=== PATIENT | female | born 1950 | race Caucasian/White ===

== ENCOUNTER 2024-10-14 10:56 | Outpatient (OUT) | payer MEDICARE, OTHER, SELFPAY ==
--- NOTE | 2024-10-14 11:01 | ECG_ITS ---
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
[2024-10-14 12:13] LABS: Hematocrit 28.1 % (36.0-48.0); Hemoglobin 8.7 g/dL (12.0-16.0); Immature Granulocytes Abs Auto 0.03 10^3/uL (0.00-0.03); Immature Granulocytes Pct Auto 0.3 % (0.0-0.5); Lymphocytes Absolute Auto 2.6 10^3/uL (1.2-3.8); Mean Corpuscular HGB Conc 31.0 g/dL (29.9-35.2); Mean Corpuscular Hemoglobin 23.3 pg (26.7-34.0); Mean Corpuscular Volume 75.1 fL (81.0-99.0); Platelet Count 517 10^3/uL (150-450); Red Blood Count 3.74 10^6/uL (4.20-5.40); White Blood Count 11.8 10^3/uL (4.0-11.0)
[2024-10-14 12:36] LABS: Anion Gap 12.9; Blood Urea Nitrogen 20.0 mg/dL (7.0-18.0); Calcium 8.7 mg/dL (8.5-10.1); Carbon Dioxide 28.1 mmol/L (21.0-32.0); Chloride 105 mmol/L (98-107); Estimated GFR (African America >60 (>=60 mL/min/1.73m^2); Estimated GFR (Non-African Ame >60 (>=60 mL/min/1.73m^2); Glucose 95 mg/dL (74-106); Potassium 3.0 mmol/L (3.5-5.1); Sodium 143 mmol/L (136-145)
--- NOTE | 2024-10-14 14:57 | P.GSHP_ITS ---
History of Present Illness History of Present Illness Chief complaint: pmb Narrative: Mrs. Arely Daniel presents to presurgical testing with complaints of pelvic pain and post menopausal bleeding. She is scheduled to undergo D&C and hysteroscopy possible MyoSure on 10/24/2024 Review of Systems ROS Narrative REVIEW OF SYSTEMS: Negative except as stated in HPI, ten or more systems reviewed. Constitutional: No fever, chills, weakness ENT: No sore throat or epistaxis Cardiovascular: No edema, chest pain, palpitations, or activity intolerance Respiratory: No shortness of breath, cough, or wheezing Musculoskeletal: No joint pain or swelling Gastrointestinal: Complaints of abdominal\low pelvic pain , constipation since starting the hydrocodone, diarrhea, or vomiting Genitourinary: No dysuria or hematuria Neurological: No numbness, tingling, weakness, or headache Psychiatric: No mood changes PFSH PFSH Medical History (Updated 10/14/24 @ 11:42 by Edilia Walsh) Migraine ?G43.909 - Migraine, unspecified, not intractable, without status migrainosus (ICD-10) Postmenopausal bleeding ?N95.0 - Postmenopausal bleeding (ICD-10) Pelvic pain ?R10.2 - Pelvic and perineal pain (ICD-10) Nausea ?R11.0 - Nausea (ICD-10) Constipation ?K59.00 - Constipation, unspecified (ICD-10) Menopause ?Z78.0 - Asymptomatic menopausal state (ICD-10) Surgical History (Updated 10/14/24 @ 11:42 by Edilia Walsh) History of tonsillectomy ?Z90.89 - Acquired absence of other organs (ICD-10) Family History (Updated 10/14/24 @ 11:39 by Edilia Walsh) Other Delayed recovery from anesthesia Family history of bone cancer Family history of heart disease Family history of pulmonary embolism Family history of stroke Social History (Updated 10/14/24 @ 11:34 by Edilia Walsh) Within the past year, how often did you have a drink containing alcohol: never Score interpretation: A score less than 3 is consistent with normal alcohol consumption. Smoking status: Former smoker Non-prescribed substance use: denies use Previous occupational history: retired Highest level of school completed/degree received: 12th grade, no diploma Meds Home Medications and Allergies Home Medications ?Medication ?Instructions ?Recorded ?Confirmed ?Type hydrocodone 5 mg-acetaminophen 325 1 tab PO Q6H PRN pa in 10/14/24 10/14/24 History mg tablet ondansetron 4 mg disintegrating 4 mg PO Q8H PRN nausea and vomiting 10/14/24 10/14/24 History tablet Allergies Allergy/AdvReac Type Severity Reaction Status Date / Time No Known Drug Allergies Allergy Verified 10/14/24 11:07 Exam Narrative Exam Narrative: Constitutional: Awake, alert, comfortable, well-appearing, nontoxic, interactive, vital signs as charted Head: Normocephalic, atraumatic Eyes: Conjunctiva and lids normal to inspection, pupils normal ENT: Tympanic membranes pearly ponce, nonerythematous, noninjected, naris patent, posterior oropharynx clear, oral mucosa moist Neck: Supple, normal appearance, normal range of motion, no meningeal signs, no lymphadenopathy Respiratory: No respiratory distress, breath sounds clear Cardiovascular: Regular rate and rhythm, strong and regular heart tones Abdomen: Nontender, normal bowel sounds, soft, no CVA tenderness Musculoskeletal: Normal gait, no swelling or edema Skin: No rashes or induration, no lesions, only visible skin inspected Neuro: No neurological deficits, normal sensation Psychiatric: Oriented ?3, normal affect Assessment and Plan Assessment and Plan (1) Postmenopausal bleeding: (2) Pelvic pain: Plan She is scheduled to undergo D&C hysteroscopy, possible MyoSure on 10/24/[address] Campbell
== END 2024-10-14 10:57 | disposition home or self-care (01) ==
LOC: PST 10:59
PROVIDERS: Visit Provider Obstetrics & Gynecology
DX: Z01.810 Encounter for preprocedural cardiovascular examination (principal); Z01.812 Encounter for preprocedural laboratory examination; Z01.818 Encounter for other preprocedural examination; N95.0 Postmenopausal bleeding; N94.89 Other specified conditions associated with female genital organs and menstrual cycle; N85.8 Other specified noninflammatory disorders of uterus
CPT/HCPCS: 80048; 85025; 93005; G0463

== ENCOUNTER 2024-10-24 07:56 | Day surgery (SDC) | payer MEDICARE, OTHER, SELFPAY ==
[2024-10-14 11:34] VITALS: BP 137/76; PULSE 88; TEMP 36.3; O2SAT 97; BMI 24.6
--- OUTSIDE RECORDS SUMMARY | 2024-10-15 13:45 | XMS_ITS | Encounter Summary ---
Author Organization [facility] Address [address] [place] [address] Care Team Providers Care Precision Honer Name Role Phone Unavailable Primary Care Provider Unavailabl e Reason for Visit * Imaging (Routine) - Pending Review Specialty Diagnoses / Procedures Referred By Brady murphy Referred To Contact Cardiology Diagnoses Abnormal EKG Procedures Transthoracic echo (TTE) complete Hui Hernandez MD [address] [facility] [id number] [place] [address] Phone: tel: fax: Referral ID Status Reason Start Date Expiration Date Visits Requested Visits Authorized [id number] Pending Review Perform Procedure 10/15/2024 10/15/2025 1 1 Encounter Details Date Type Department Care Team (Late st Contact Info) Description 10/15/2024 1:45 PM EDT Ancillary Procedure [facility] [address] [place] [phone] Abnormal EKG Social History Tobacco Use Types Packs/Day Years Used Date Smoking Tobacco: Never Smokeless Tobacco: Never Alcohol Use Standard Drinks/Week Comments Not Currently 0 (1 standard drink = 0.6 oz pur e alcohol) Comments No Sex and Gender Information Value Date Recorded Sex Assigned at Female 10/14/2024 1:13 PM EDT Legal Sex Female 1:01 PM EDT Gender Identity Female 10/14/2024 1:13 PM EDT Sexual Orientation Heterosexual or Straight 10/2024 1:13 PM EDT documented as of this encounter Plan of Treatment Upcoming Encounters Date Type Department Care Team (Late st Contact Info) Description 12/12/2024 1:00 PM EST Office Visit [facility] [address] [place] [id number] Hui Hernandez MD [address] MS:[place] [address] documented as of this encounter Procedures Procedure Name Priority Date/Time Associated Diagnosis Comments COMPLETE ECHO (TTE) Routine 10/15/2024 2 :04 PM EDT Abnormal EKG documented in this encounter Results * COMPLETE ECHO (TTE) (10/15/2024 2:04 PM EDT) Anatomical Region Laterality Modality Other 10/15/2024 1:37 PM EDT Narrative 10/15/2024 3:00 PM EDT 1 [facility] [phone] (fax) [phone] (fax) [phone] (fax) [phone] (fax) [facility]ogram[facility] Name: MARCY VEGA Study Date: 10/15/2024 01:37 PM B/P: 130 mmHg/70 mmHg HR: Date of : 1950 Location: [place] Height: 65 in. Age: 74 year(s) Patient Room: Weight: 152 lb. Gender: Female Patient Status: OutPt BSA: 1.76 m2 Indication: PreOp Evaluation, Abnormal EKG Examination: Echocardiogram (Complete) Image Quality: Adequate Conclusions Left Ventricle: The left ventricle is normal size. Global left ventricular systolic function is normal. The EF is 55 % visually. Left ventricular wall thickness is normal. No regional wall motion abnormality. Normal diastolic function. Right Ventricle: The right ventricle is normal in size. Normal right ventricular systolic function. Doppler studies suggest normal right sided pressures. Left Atrium: The left atrium is normal in size. Aortic Valve: Trivial aortic valve regurgitation. There is color flow between the aorta and right ventricular outflow concerning for a small theo-membranous VSD or a PA fistula. Consider a transesophageal echcoardiogram for further evaluation Measurements Left Ventricle Label Value Normal Value LVOT PGmax 3.99 mmHg LVEF visual 55 % LVDd, 2D 4.75 cm (3.9cm - 5.3cm) LVDs, 2D 3.19 cm (2.1cm - 4cm) IVSd, 2D 0.77 cm (0.6cm - 1.1cm) LVPWd, 2D 0.83 cm (0.6cm - 0.9cm) LV Mass, 2D ASE 124.46 g LV Mass Index, 2D ASE 70.7 g/m?? (44g/m?? - 88.4g/m??) RWT, MM 0.35 (0 - 0.42) Right Ventricle Label Value Normal Value RVDd, 2D 3.26 cm (1.9cm - 3.8cm) TAPSE 2 cm Left Atrium Label Value Normal Value LA Volume, BP 28 ml (22ml - 52ml) LADs, 2D 3.2 cm (2.7cm - 3.8cm) LAESV index, BP 15.9 ml/m?? Right Atrium Label Value Normal Value RA Area 8.5 cm?? Aortic Valve Label Value Normal Value AV DVI 0.78 Mitral Valve Label Value Normal Value MV E Vmax 0.8 m/s MV A Vmax 0.81 m/s MV E/A 0.99 MV E/E' lateral 11.71 MV E' lateral 0.07 m/s Tricuspid Valve Label Value Normal Value RA Pressure 3 mmHg RVSP 30 mmHg TR Vmax 2.59 m/s Aorta Label Value Normal Value AoRoot, 2D 2.87 cm (1.4cm - 3.8cm) Great Vessels Label Value Normal Value IVC 1.23 cm (1.2cm - 2.3cm) Valvular Assessment LVOT 0.7 - 1.1 m/sec Aortic Valve 1.0 - 1.7 m/sec Mitral Valve 0.6 - 1.3 m/sec Tricuspid Valve 0.3 - 0.7 m/sec Pulmonic Valve 0.6 - 0.9 m/sec Regurgitation Trivial trivMil Trivial Trivial Max Velocity 1.00 m/sec 1.28 m/s 0.80 m/sec 0.55 m/s 1.01 m/s Max Gradient 6.55 mmHg 1.22 mmHg 4.09 mmHg Findings Left Ventricle: The left ventricle is normal size. Global left ventricular systolic function is normal. EF evaluated by visual assessment. The EF is 55 % visually. Left ventricular wall thickness is normal. No regional wall motion abnormality. Normal diastolic function. Right Ventricle: The right ventricle is normal in size. Normal right ventricular systolic function. Doppler studies suggest normal right sided pressures. Left Atrium: The left atrium is normal in size. IAS: Normal appearing atrial septum. Right Atrium: The right atrium is normal in size. Mitral Valve: There is mild thickening of the mitral valve leaflets. Trvial to mild mitral regurgitation. Aortic Valve: Aortic valve is tri-leaflet. Trivial aortic valve regurgitation. There is color flow between the aorta and right ventricular outflow concerning for a small theo-membranous VSD or a PA fistula. Consider a transesophageal echcoardiogram for further evaluation Tricuspid Valve: Normal tricuspid valve. Trivial tricuspid regurgitation. Pulmonic Valve: Pulmonary valve appears normal. Trivial pulmonary regurgitation. Aorta: The aortic root is normal in size. Great Vessels: Pulmonary Artery: The pulmonary artery morphology appears normal. Pericardium: Anterior free space is seen; effusion versus fat pad. Procedure Staff Reading Group: [facility] Auto Body Mechanic Apprentice: Nita Jj RDCS Procedure Note Lonny Zaragoza MD - 10/15/2024 1 [facility] [phone] (fax) [phone] (fax) [phone] (fax) [phone] (fax) Echocardiogram-[place] Name: MARCY VEGA Study Date: 10/15/2024 01:37 PM B/P: 130 mmHg/70 mmHg HR: Date of : 1950 Location: [place] Height: 65 in. Age: 74 year(s) Patient Room: Weight: 152 lb. Gender: Female Patient Status: OutPt BSA: 1.76 m2 Indication: PreOp Evaluation, Abnormal EKG Examination: Echocardiogram (Complete) Image Quality: Adequate Conclusions Left Ventricle: The left ventricle is normal size. Global left ventricular systolic function is normal. The EF is 55 % visually. Left ventricular wall thickness is normal. No regional wall motion abnormality. Normal diastolic function. Right Ventricle: The right ventricle is normal in size. Normal right ventricular systolic function. Doppler studies suggest normal right sided pressures. Left Atrium: The left atrium is normal in size. Aortic Valve: Trivial aortic valve regurgitation. There is color flow between the aorta and right ventricular outflow concerning for a small theo-membranous VSD or a PA fistula. Consider a transesophageal echcoardiogram for further evaluation Measurements Left Ventricle Label Value Normal Value LVOT PGmax 3.99 mmHg LVEF visual 55 % LVDd, 2D 4.75 cm (3.9cm - 5.3cm) LVDs, 2D 3.19 cm (2.1cm - 4cm) IVSd, 2D 0.77 cm (0.6cm - 1.1cm) LVPWd, 2D 0.83 cm (0.6cm - 0.9cm) LV Mass, 2D ASE 124.46 g LV Mass Index, 2D ASE 70.7 g/m?? (44g/m?? - 88.4g/m??) RWT, MM 0.35 (0 - 0.42) Right Ventricle Label Value Normal Value RVDd, 2D 3.26 cm (1.9cm - 3.8cm) TAPSE 2 cm Left Atrium Label Value Normal Value LA Volume, BP 28 ml (22ml - 52ml) LADs, 2D 3.2 cm (2.7cm - 3.8cm) LAESV index, BP 15.9 ml/m?? Right Atrium Label Value Normal Value RA Area 8.5 cm?? Aortic Valve Label Value Normal Value AV DVI 0.78 Mitral Valve Label Value Normal Value MV E Vmax 0.8 m/s MV A Vmax 0.81 m/s MV E/A 0.99 MV E/E' lateral 11.71 MV E' lateral 0.07 m/s Tricuspid Valve Label Value Normal Value RA Pressure 3 mmHg RVSP 30 mmHg TR Vmax 2.59 m/s Aorta Label Value Normal Value AoRoot, 2D 2.87 cm (1.4cm - 3.8cm) Great Vessels Label Value Normal Value IVC 1.23 cm (1.2cm - 2.3cm) Valvular Assessment LVOT 0.7 - 1.1 m/sec Aortic Valve 1.0 - 1.7 m/sec Mitral Valve 0.6 - 1.3 m/sec Tricuspid Valve 0.3 - 0.7 m/sec Pulmonic Valve 0.6 - 0.9 m/sec Regurgitation Trivial trivMil Trivial Trivial Max Velocity 1.00 m/sec 1.28 m/s 0.80 m/sec 0.55 m/s 1.01 m/s Max Gradient 6.55 mmHg 1.22 mmHg 4.09 mmHg Findings Left Ventricle: The left ventricle is normal size. Global left ventricular systolic function is normal. EF evaluated by visual assessment. The EF is 55 % visually. Left ventricular wall thickness is normal. No regional wall motion abnormality. Normal diastolic function. Right Ventricle: The right ventricle is normal in size. Normal right ventricular systolic function. Doppler studies suggest normal right sided pressures. Left Atrium: The left atrium is normal in size. IAS: Normal appearing atrial septum. Right Atrium: The right atrium is normal in size. Mitral Valve: There is mild thickening of the mitral valve leaflets. Trvial to mild mitral regurgitation. Aortic Valve: Aortic valve is tri-leaflet. Trivial aortic valve regurgitation. There is color flow between the aorta and right ventricular outflow concerning for a small theo-membranous VSD or a PA fistula. Consider a transesophageal echcoardiogram for further evaluation Tricuspid Valve: Normal tricuspid valve. Trivial tricuspid regurgitation. Pulmonic Valve: Pulmonary valve appears normal. Trivial pulmonary regurgitation. Aorta: The aortic root is normal in size. Great Vessels: Pulmonary Artery: The pulmonary artery morphology appears normal. Pericardium: Anterior free space is seen; effusion versus fat pad. Procedure Staff Reading Group: [facility] Auto Body Mechanic Apprentice: Nita Jj RDCS Hui Hernandez MD CV ECHO PROCEDURES Final Result documented in this encounter Visit Diagnoses Diagnosis Abnormal EKG Nonspecific abnormal electrocardiogram (ECG) (EKG) documented in this encounter
--- OUTSIDE RECORDS SUMMARY | 2024-10-24 07:58 | XMS_ITS | Encounter Summary ---
Author Organization [facility] Address [address] [place] [address] Care Team Providers Care Specifications Checker Name Role Phone Unavailable Primary Care Provider Unavailabl e Encounter Details Date Type Department Care Team (Late st Contact Info) Description 10/16/2024 Abstract [facility] [address] [place] [id number] Ann Jones MA Social History Tobacco Use Types Packs/Day Years [...] Description 12/12/2024 1:00 PM EST Office Visit [facility] [address] [place] [phone] Hui Hernandez MD [address] [place] [address] documented as of this encounter Visit Diagnoses Not on filedocumented in this encounter
--- OUTSIDE RECORDS SUMMARY | 2024-10-24 07:59 | XMS_ITS | Clinical Summary ---
Author Organization [facility] Address [address] [place] [address] Care Team Providers Care Pin Puller Name Role Phone Unavailable Primary Care Provider Unavailabl e Allergies No known active allergies Medications ondansetron (Zofran) 4 mg tablet Take 4 mg by mouth every 8 (eight) hours if needed for nausea or vomiting. Active docusate sodium (Colace) 100 mg capsule Take 100 mg by mouth if needed in the morning and at bedtime. Active ibuprofen 200 mg tablet Take 200 mg by mouth every 6 (six) hours if needed for mild pain (1-3 pain score). Active Active Problems Problem Noted Date Diagnosed Date Preoperative clearance 10/15/2024 Abnormal EKG 10/15/2024 Postmenopausal bleeding 10/15/2024 Mass of uterus 10/15/2024 Encounters Date Type Department Care Team Description 10/16/2024 Abstract [facility] [address] [facility] [place] [address] Ann Jones MA 10/15/2024 1:45 PM EDT Ancillary Procedure [facility] [address] [address] Abnormal EKG 10/15/2024 1:00 PM EDT Office Visit [facility] [place] [address] Hui Hernandez MD Preoperative clearance (Primary Dx); Abnormal EKG; Postmenopausal bleeding; Mass of uterus 10/14/2024 Orders Only [facility] [place] [address] [place] [address] ProviderSandip MD from Last 3 Months Family History Relation Name Status Comments Daughter 1 Alive Daughter 2 Alive Daughter 3 Alive Father Mother Sister Social History Tobacco Use Types Packs/Day Years Used Date Smoking Tobacco: Never Smokeless Tobacco: Never Tobacco Cessation:Counseling Given: Not Answered Alcohol Use Standard Drinks/Week Comments Not Currently 0 (1 standard drink = 0.6 oz pur e alcohol) Comments No Sex and Gender Information Value Date Recorded Sex Assigned at Female 10/14/2024 1:13 PM EDT Legal Sex Female 1:01 PM EDT Gender Identity Female 10/14/2024 1:13 PM EDT Sexual Orientation Heterosexual or Straight 10/2024 1:13 PM EDT Last Filed Vital Signs Vital Sign Reading Time Taken Comments Blood Pressure 130/70 10/15/2024 1:09 PM EDT Pulse 95 10/15/2024 1:09 PM EDT Temperature - - Respiratory Rate - - Oxygen Saturation 96% 10/15/2024 1:09 PM EDT Inhaled Oxygen Concentration - - Weight 68.9 kg (152 lb) 10/15/2024 1:09 PM EDT Height 166.4 cm (5' 5.5 ) 10/15/2024 1:09 PM EDT Body Mass Index 24.91 10/15/2024 1:09 PM EDT Plan of Treatment Upcoming Encounters Date Type Department Care Team (Late st Contact Info) Description 12/12/2024 1:00 PM EST Office Visit [facility] [address] [place] [address] Hui Hernandez MD [address] [place] [address] MS:[address] [place] [address] Health Maintenance Due Date Last Done Comments CT Colonography 1950 Colonoscopy 1950 Colorectal Cancer Screening 1950 FIT-DNA 1950 FIT 1950 FOBT 1950 Medicare Annual Wellness (AWV) 1950 Sigmoidoscopy 1950 Depression Screening 1964 Mammogram 1992 Pneumococcal Vaccine: 50+ Ye ars (1 of 1 - PCV) 2002 Zoster Vaccines (1 of 2) 2002 Fall Risk Screening 2017 Adult Tetanus 05/31/2020 05/31/2010 COVID-19 Vaccine (1 - 2023-2 5 season) 2024 Influenza Vaccine (#1) 2024 HIB Vaccines Aged Out No longer eligi ble based on patient's age to complete this topic HPV Vaccines Aged Out No longer eligi ble based on patient's age to complete this topic IPV Vaccines Aged Out No longer eligi ble based on patient's age to complete this topic Meningococcal B Vaccine Aged Out No l onger eligible based on patient's age to complete this topic Meningococcal Vaccine Aged Out No johan ankush eligible based on patient's age to complete this topic Rotavirus Vaccines Aged Out No longer eligible based on patient's age to complete this topic Procedures Procedure Name Priority Date/Time Associated Diagnosis Comments COMPLETE ECHO (TTE) Routine 10/15/2024 2 :04 PM EDT Abnormal EKG ECG 12-LEAD Routine 10/14/2024 1:18 PM EDT from Last 3 Months Results * COMPLETE ECHO (TTE) (10/15/2024 2:04 PM EDT) Anatomical Region Laterality Modality Other 10/15/2024 1:37 PM EDT Narrative 10/15/2024 3:00 PM EDT 1 [facility] [phone] (fax) [phone] (fax) [phone] (fax) [phone] (fax) Echocardiogram[facility] Name: MARCY VEGA Study Date: 10/15/2024 01:37 PM B/P: 130 mmHg/70 mmHg HR: Date of : 1950 Location: [facility] Height: 65 in. Age: 74 year(s) Patient [...] versus fat pad. Procedure Staff Reading Group: [facility] Cell Tender: Nita Jj RDCS Procedure Note Lonny Zaragoza MD - 10/15/2024 1 [facility] [phone] (fax) [phone] (fax) [phone] (fax) [phone] (fax) [facility]ocardiogram[facility] Name: MARCY VEGA Study Date: 10/15/2024 01:37 PM B/P: 130 mmHg/70 mmHg HR: Date of : 1950 Location: [facility] Height: 65 in. Age: 74 year(s) Patient [...] versus fat pad. Procedure Staff Reading Group: [facility] Cell Tender: Nita Jj RDCS Hui Hernandez MD CV ECHO PROCEDURES Final Result * ECG 12 lead (10/14/2024 1:18 PM EDT) Historical Provider ECG ORDERABLES Final Res ult from Last 3 Months Insurance MEDICARE Member Subscriber Plan / Payer (Ef fective 2024-Present) Name:Marcy Vega Member ID:[id number] Relation to Subscriber:Self Name:Marcy Vega Subscriber ID:[id number] Payer ID:[id number] Group ID:Not on file Type:Medicare Address: [facility] [place] [place] [id number] [place] [id number]
--- OUTSIDE RECORDS SUMMARY | 2024-10-24 07:59 | XMS_ITS | Encounter Summary ---
Author Organization [facility] Address [address] [place] [address] Care Team Providers Care Philosophy Faculty Member Name Role Phone Unavailable Primary Care Provider Unavailabl e Encounter Details Date Type Department Care Team (Late Contact Info) Description 10/22/2024 Telephone [facility] [address] [place] [address] Edilia Walsh NP [address] [place] [address] Social History Tobacco Use Types Packs/Day Years Used Date Smoking Tobacco: Never Assessed Comments No Sex and Gender Information Value Date Recorded Sex Assigned at Not on file Legal Sex Female 6:53 PM EDT Gender Identity Not on file Sexual Orientation Not on file documented as of this encounter Miscellaneous Notes * Telephone Encounter - Edilia Walsh NP - 10/22/2024 4:40 PM EDT Patient with complaints of continued pain and reports that she does not have pain medication available. Will send in prescription for Percocet #15 documented in this encounter Plan of Treatment Upcoming Encounters Date Type Department Care Team (Late Contact Info) Description 10/29/2024 11:10 AM EDT Office Visit [facility] [address] [facility] [address] Stephane Campbell DO [address] [place] [address] documented as of this encounter Visit Diagnoses Diagnosis Pelvic pain in female Unspecified symptom associated with female genital organs Pelvic mass Abdominal or pelvic swelling, mass or lump, unspecified site Post-menopausal bleeding Postmenopausal bleeding documented in this encounter
--- OUTSIDE RECORDS SUMMARY | 2024-10-24 07:59 | XMS_ITS | Clinical Summary ---
Author Organization [facility] Address [address] [id number] Care Team Providers Care Hand Booked Folder And Stitcher Name Role Phone Unavailable Primary Care Provider Unavailabl e Allergies No known active allergies Medications ondansetron ODT (Zofran-ODT) 4 MG disintegrating tabletIndication s:Pelvic pain in female Take 1 tablet (4 mg) by mouth every 8 (eight) hours if needed for nausea or vomiting 10 tablet 2 025 2024 Active ibuprofen 200 MG tablet Take 200 mg by mouth every 6 (six) hours if needed for mild pain Active oxyCODONE-acetam inophen (Percocet) 5-325 MG tabletIndication s:Pelvic pain in female,Pelvic mass,Post-menopa usal bleeding Take 1 tablet by mouth every 6 (six) hours if needed for severe pain for up to 5 days 15 tablet 025 2024 Active Suzetrigine (Journavx) 50 MG tabletIndication s:Post-menopausa l bleeding,Pain of ovary Take 50 mg by mouth See administration instructions for 14 days First dose take 2 tablets followed by 1 tablet every 12 hours, beginning 12 hours after first dose. 29 tablet 025 2024 Discontinued docusate sodium (Colace) 100 MG capsuleIndicatio ns:Pelvic pain in female Take 1 capsule (100 mg) by mouth 2 (two) times a day as needed for constipation for up to 10 days 20 capsule 5 025 2024 HYDROcodone-acet aminophen (Busy) 5-325 MG tabletIndication s:Pelvic pain in female Take 1 tablet by mouth every 6 (six) hours if needed for moderate pain or severe pain for up to 5 days 20 tablet 025 2024 oxyCODONE-acetam inophen (Percocet) 5-325 MG tabletIndication s:Pelvic pain in female,Pelvic mass,Post-menopa usal bleeding Take 1 tablet by mouth every 6 (six) hours if needed for severe pain for up to 5 days 15 tablet 025 2024 Discontinued(R eorder) Encounters Date Type Department Care Team Description 10/22/2024 [place] [address] Edilia Walsh NP 10/16/2024 [place] [address] Edilia Walsh, RAFI Pelvic pain in female (Primary Dx); Pelvic mass; Post-menopausal bleeding 10/16/2024 Results [place] [address] Marti Valencia, BHUPINDER ALL CBC WITH AUTO DIFF, ALL BASIC METABOLIC PANEL 10/15/2024 Refill [facility] [address] [place] [address] Edilia Wlash, RAFI Uterine mass; Pain of ovary; Pelvic pain in female; Post-menopausal bleeding 10/15/2024 [place] [address] Edilberto Campbell, DO 10/14/2024 Clinisync Result Encounter NOMS External Department Unsolicited Edilberto Campbell, DO 10/14/2024 Clinisync Result Encounter NOMS External Department Unsolicited Edilberto Campbell, DO 10/09/2024 2:40 PM [place] [address] Edilia Walsh NP Pre-op examination; PMB (postmenopausal bleeding); Pain of ovary; Uterine mass 10/07/2024 2:30 PM EDT Ancillary Procedure [facility] [address] [place] [address] [place] [address] Post-menopausal bleeding; Pain of ovary 10/07/2024 Telephone [facility] [address] [place] [address] [place] [address] Kassie Moctezuma PA 10/07/2024 Telephone [facility] [address] [place] [address] [place] [address] Marti Valencia LPN 10/02/2024 Abstract [facility] [address] [place] [address] [place] [address] Kassie Moctezuma PA 10/02/2024 Telephone [facility] [address] [place] [address] [place] [address] Kassie Moctezuma PA 09/18/2024 10:50 AM EDT Office Visit [facility] [address] [place] [address] [place] [address] Edilia Walsh NP Post-menopausal bleeding; Pain of ovary 09/18/2024 Bamboo flowsheet [facility] [address] [place] [address] [place] [address] Edilia Walsh NP from Last 3 Months Social History Tobacco Use Types Packs/Day Years Used Date Smoking Tobacco: Never Assessed Comments No Sex and Gender Information Value Date Recorded Sex Assigned at Not on file Legal Sex Female 6:53 PM EDT Gender Identity Not on file Sexual Orientation Not on file Last Filed Vital Signs Vital Sign Reading Time Taken Comments Blood Pressure 120/70 10/09/2024 2:54 PM EDT Pulse - - Temperature - - Respiratory Rate - - Oxygen Saturation - - Inhaled Oxygen Concentration - - Weight 68.9 kg (152 lb) 10/09/2024 2:54 PM EDT Height - - Body Mass Index - - Plan of Treatment Upcoming Encounters Date Type Department Care Team (Late st Contact Info) Description 10/29/2024 11:10 AM EDT Office Visit [facility] [address] [place] [phone] Edilberto Campbell DO [address] [facility] [place] [address] Procedures Procedure Name Priority Date/Time Associated Diagnosis Comments ALL BASIC METABOLIC PANEL Routine 10/14/2024 11:54 AM EDT ALL CBC WITH AUTO DIFF Routine 10/14/2024 11:54 AM EDT ECG 12-LEAD 10/14/2024 10:22 AM EDT US PELVIC COMPLETE W/ TV Routine 10/08/2024 10:18 AM EDT Post-menopausal bleeding Pain of ovary from Last 3 Months Results * (ABNORMAL) ALL CBC WITH AUTO DIFF (10/14/2024 11:54 AM EDT) TBH WBC 11.8(H) 4.0 - 11.0 10 3/uL TBH TBH RBC 3.74(L) 4.20 - 5.40 10 6/uL TBH TBH HGB 8.7(L) 12.0 - 16.0 g/dL TBH TBH HCT 28.1(L) 36.0 - 48.0 % TBH TBH MCV 75.1(L) 81.0 - 99.0 fL TBH TBH MCH 23.3(L) 26.7 - 34.0 pg TBH TBH MCHC 31.0 29.9 - 35.2 g/dL TBH TBH RDW 15.9(H) 11.0 - 15.0 % TBH TBH PLT 517(H) 150 - 450 10 3/uL TBH TBH MPV 9.9 9.5 - 13.5 fL TBH NEUTROPHILS PERCENT AUTO 55.3 43.0 - 75.0 % TBH LYMPHOCYTES PERCENT AUTO 21.7 20.5 - 60.0 % TBH MONOCYTES PERCENT AUTO 9.6 1.7 - 12.0 % TBH TBH EO % 12.4(H) 0.9 - 7.0 % TBH BASOPHILS PERCENT AUTO 0.7 0.2 - 2.0 % TBH IMMATURE GRANULOCYTES PCT AUTO 0.3 0.0 - 0.5 % TBH NEUTROPHILS ABSOLUTE AUTO 6.6(H) 1.4 - 6.5 10 3/uL TBH LYMPHOCYTES ABSOLUTE AUTO 2.6 1.2 - 3.8 10 3/uL TBH MONOCYTES ABSOLUTE AUTO 1.1(H) 0.3 - 0.8 10 3/uL TBH TBH EO # 1.5(H) 0.0 - 0.7 10 3/uL TBH BASOPHILS ABSOLUTE AUTO 0.1 0.0 - 0.1 10 3/uL TBH IMMATURE GRANULOCYTES ABS AUTO 0.03 0.00 - 0.03 10 3/uL TBH 10/14/2024 11:5 4 AM EDT 10/14/2024 11:56 AM EDT Narrative CLINISYNC - 10/14/2024 12:17 PM EDT us Edilberto Campbell DO CLINIS[facility] Final Result [facility] * (ABNORMAL) ALL BASIC METABOLIC PANEL (10/14/2024 11:54 AM EDT) SODIUM 143 136 - 145 mmol/L TBH POTASSIUM 3.0(L) 3.5 - 5.1 mmol/L TBH CHLORIDE 105 98 - 107 mmol/L TBH CARBON DIOXIDE 28.1 21.0 - 32.0 mmol/L TBH ANION GAP 12.9 TBH GLUCOSE 95 74 - 106 mg/dL TBH BLOOD UREA NITROGEN 20.0(H) 7.0 - 18.0 mg/dL TBH CREATININE 0.78 0.55 - 1.02 mg/dL TBH TBH EGFR-AF VIET[place]ESE >60 >=60 mL/min/1.7 3m 2 TBH TBH EGFR-NON AF VIETNAMESE >60 >=60 mL/min/1.7 3m 2 TBH BUN CREATININE RATIO 25.6 TBH CALCIUM 8.7 8.5 - 10.1 mg/dL TBH 10/14/2024 11:5 4 AM EDT 10/14/2024 11:56 AM EDT Narrative CLINISYNC - 10/14/2024 12:37 PM EDT Edilberto Campbell DO CLINISYNC Final Result [facility] TB * ECG 12-LEAD (10/14/2024 10:22 AM EDT) Anatomical Region Laterality Modality Other 10/14/2024 10:2 2 AM EDT Narrative 10/16/2024 1:33 [place] [address] Electrocardiograph Report Signed Patient: MARCY VEGA MR#: [id number] : 1950 Acct:[id number] Age/Sex: 74 / F ADM Date: 10/14/24 Loc: PST Attending Dr: Edilberto Campbell D.O. Ordering Physician: Edilberto Campbell D.O. 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 Signed By: 10/16/24 1333 DD/ 102 TD/TT: Pattern Scratcher: Procedure Note Radiology, Radiologist, - 10/16/2024 [place] [address] Electrocardiograph Report Signed Patient: MARCY VEGA KMR#: [id number] : 1950cct:[id number] Age/Sex: 74 / FADM Date: 10/14/24 Loc: PST Attending Dr: Edilberto Campbell D.O. Ordering Physician: Edilberto Campbell D.O. 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 Signed By:10/16/241332 DD/ 1022 TD/TT: Pattern Scratcher: us Edilberto Campbell DO [facility] IMAGING Final Result * US Pelvis w/ TV (10/08/2024 10:18 AM EDT) Anatomical Region Laterality Modality Pelvis Ultrasound 10/08/2024 3:03 PM EDT Impressions 10/08/2024 3:31 PM EDT Central uterine mass, likely endometrial etiology, benign and malignant etiologies should be considered. TRANSCRIBED BY: ELECTRONICALLY SIGNED BY: Faizan Amin MD Narrative 10/08/2024 3:31 PM EDT FINDINGS: Uterus 10.3 x 5.9 x 7.6 cm Endometrium 37 mm Right ovary 2.4 x 2.3 x 2.2 cm Left ovary 4.0 x 3.3 x 3.1 cm Increase in uterine volume, anteversion/anteflexion. No myometrial mass. Increased endometrial thickness with a heterogeneous mildly hyperechogenic area within the body, no cystic changes. Margins are not well defined, possible submucosal extension into the myometrium. Right ovarian several mm follicles. Normal left ovary, no adnexal mass or pelvic fluid. Procedure Note Faizan Amin MD - 10/08/2024 FINDINGS: Uterus 10.3 x 5.9 x 7.6 cm Endometrium 37 mm Right ovary 2.4 x 2.3 x 2.2 cm Left ovary 4.0 x 3.3 x 3.1 cm Increase in uterine volume, anteversion/anteflexion. No myometrial mass. Increased endometrial thickness with a heterogeneous mildly hyperechogenicarea within the body, no cystic changes. Margins are not well defined,possible submucosal extension into the myometrium. Right ovarian several mm follicles. Normal left ovary, no adnexal mass orpelvic fluid. IMPRESSION: Central uterine mass, likely endometrial etiology, benign and malignantetiologies should be considered. TRANSCRIBED BY: ELECTRONICALLY SIGNED BY: Faizan Amin MD Edilia Walsh NP [place] US PROCEDURES Final Resul t from Last 3 Months Insurance [employer]
--- OUTSIDE RECORDS SUMMARY | 2024-10-24 07:59 | XMS_ITS | Encounter Summary ---
Author Organization [facility] Address [address] [place] [address] Care Team Providers Care Stove Refinisher Name Role Phone Unavailable Primary Care Provider Unavailabl e Encounter Details Date Type Department Care Team (Late st Contact Info) Description 10/16/2024 Results Follow-Up [facility] [address] [facility] [place] [phone] Marti Valencia LPN [address] [id number] ALL CBC WITH AUTO DIFF, ALL BASIC METABOLIC PANEL Social History Tobacco Use Types Packs/Day Years Used Date Smoking Tobacco: Never Assessed Comments No Sex and Gender Information Value Date Recorded Sex Assigned at Not on file Legal Sex Female 6:53 PM EDT Gender Identity Not on file Sexual Orientation Not on file documented as of this encounter Miscellaneous Notes * Result Encounter Note - Marti Valencia LPN - 10/16/2024 9:33 AM EDT Per pt * Result Encounter Note - Marti Valencia LPN - 10/16/2024 9:22 AM EDT Pt has no PCP documented in this encounter Plan of Treatment Upcoming Encounters Date Type Department Care Team (Late Contact Info) Description 10/29/2024 11:10 AM EDT Office Visit [facility] [place] [facility] [address] [facility] [place] [address] Stephane Campbell DO [address] [facility] [place] [address] documented as of this encounter Visit Diagnoses Not on filedocumented in this encounter
--- OUTSIDE RECORDS SUMMARY | 2024-10-24 07:59 | XMS_ITS | Encounter Summary ---
Author Organization [facility] Address [address] [place] [address] Care Team Providers Care Boiling House Hand Name Role Phone Unavailable Primary Care Provider Unavailabl e Encounter Details Date Type Department Care Team (Late st Contact Info) Description 10/14/2024 Orders Only [address] [address] ProviderSandip MD [address] [place], [place] [id number] Social History Tobacco Use Types Packs/Day Years Used Date Smoking Tobacco: Never Assessed Comments Unknown Sex and Gender Information Value Date Recorded Sex Assigned at Female 10/14/2024 1:13 PM EDT Legal Sex Female 1:01 PM EDT Gender Identity Female 10/14/2024 1:13 PM EDT Sexual Orientation Heterosexual or Straight 10/2024 1:13 PM EDT documented as of this encounter Plan of Treatment Upcoming Encounters Date Type Department Care Team (Late st Contact Info) Description 12/12/2024 1:00 PM EST Office Visit [facility] [address] [place] [address] Hui Hernandez MD [address] MS[address] [place] [address] documented as of this encounter Procedures Procedure Name Priority Date/Time Associated Diagnosis Comments ECG 12-LEAD Routine 10/14/2024 1:18 PM EDT documented in this encounter Results * ECG 12 lead (10/14/2024 1:18 PM EDT) Historical Provider ECG ORDERABLES Final Res ult documented in this encounter Visit Diagnoses Not on filedocumented in this encounter
--- OUTSIDE RECORDS SUMMARY | 2024-10-24 07:59 | XMS_ITS | Encounter Summary ---
Author Organization [facility] Address [address] [place] [address] Care Team Providers Care Marketing Research Coordinator Name Role Phone Unavailable Primary Care Provider Unavailabl e Encounter Details Date Type Department Care Team (Late Contact Info) Description 10/15/2024 Refill [facility] [place] [facility] [address] [facility] [place] [address] Edilia Walsh, RAFI [address] [facility] [place] [address] Uterine mass; Pain of ovary; Pelvic pain in female; Post-menopausal bleeding Social History Tobacco Use Types Packs/Day Years Used Date Smoking Tobacco: Never Assessed Comments No Sex and Gender Information Value Date Recorded Sex Assigned at Not on file Legal Sex Female 6:53 PM EDT Gender Identity Not on file Sexual Orientation Not on file documented as of this encounter Miscellaneous Notes * Telephone Encounter - Ana María Carrasco LPN - 10/15/2024 8:52 AM EDT Patient was seen at [facility] @ [facility] on 10/14/24. Patient will need to stop taking Ibuprofen prior to surgical procedure. Advised patient at that time that Percocet would be called intopharmacy once back at the office. PVU. documented in this encounter Plan of Treatment Upcoming Encounters Date Type Department Care Team (Late Contact Info) Description 10/29/2024 11:10 AM EDT Office Visit [facility] [address] [facility] [place] [phone] Stephane Campbell DO [address] [facility] [place] [address] documented as of this encounter Visit Diagnoses Diagnosis Uterine mass Other specified symptom associated with female genital organs Pain of ovary Pelvic pain in female Unspecified symptom associated with female genital organs Post-menopausal bleeding Postmenopausal bleeding documented in this encounter
--- OUTSIDE RECORDS SUMMARY | 2024-10-24 07:59 | XMS_ITS | Encounter Summary ---
Author Organization [facility] Address [address] [place] [address] Care Team Providers Care Lunch Truck Driver Name Role Phone Unavailable Primary Care Provider Unavailabl e Encounter Details Date Type Department Care Team (Late Contact Info) Description 10/02/2024 Abstract ALYSSA ESTES [address] [facility] [place] [phone] Kassie Moctezuma PA [address] [facility] [address] [place], [facility] Social History Tobacco Use Types Packs/Day Years Used Date Smoking Tobacco: Never Assessed Comments No Sex and Gender Information Value Date Recorded Sex Assigned at Not on file Legal Sex Female 6:53 PM EDT Gender Identity Not on file Sexual Orientation Not on file documented as of this encounter Plan of Treatment Upcoming Encounters Date Type Department Care Team (Late Contact Info) Description 10/29/2024 11:10 AM EDT Office Visit ALYSSA ESTES [address] [place] [phone] Stephane Campbell DO [address] [facility] [address] [place], [facility] documented as of this encounter Visit Diagnoses Not on filedocumented in this encounter
--- OUTSIDE RECORDS SUMMARY | 2024-10-24 07:59 | XMS_ITS | Encounter Summary ---
Author Organization [facility] Address [address] [place] [address] Care Team Providers Care Metal Temperer Name Role Phone Unavailable Primary Care Provider Unavailabl e Encounter Details Date Type Department Care Team (Late st Contact Info) Description 10/14/2024 Clinisync Result Encounter NOMS External Department Unsolicited Edilberto Campbell DO [address] [place] [address] Social History Tobacco Use Types Packs/Day Years [...] AM EDT Office Visit ALYSSA ESTES [address] [place] [address] Edilberto Campbell DO [address] [place] [address] documented as of this encounter Procedures Procedure Name Priority Date/Time Associated Diagnosis Comments ECG 12-LEAD 10/14/2024 10:22 AM EDT documented in this encounter Results * ECG 12-LEAD (10/14/2024 10:22 AM EDT) Anatomical Region Laterality Modality Other 10/14/2024 10:2 2 AM EDT Narrative 10/16/2024 1:33 PM EDT [address] [place] [id number] Electrocardiograph Report Signed Patient: MARCY VEGA MR#: [id number] : 1950 Acct:[id number] Age/Sex: 74 / F ADM Date: 10/14/24 Loc: PST Attending Dr: Edilberto Campbell D.O. Ordering Physician: Edilberto Campbell D.O. 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 Signed By: 10/16/24 1333 DD/ 1022 TD/TT: Real Estate Sales Supervisor: Procedure Note Radiology, Radiologist, MD - 10/16/[address] [address] Electrocardiograph Report Signed Patient: MARCY VEGA KMR#: [id number] : 1950cct:[id number] Age/Sex: 74 / FADM Date: 10/14/24 Loc: PST Attending Dr: Edilberto Campbell D.O. Ordering Physician: Adrian,Edilberto D.O. 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 Signed By:10/16/24 1333 DD/ 1022 TD/TT: Real Estate Sales Supervisor: us Edilberto Campbell DO [facility] IMAGING Final Result documented in this encounter Visit Diagnoses Not on filedocumented in this encounter
--- OUTSIDE RECORDS SUMMARY | 2024-10-24 07:59 | XMS_ITS | Encounter Summary ---
Author Organization [facility] Address [address] [place] [address] Care Team Providers Care Bowl Topper Name Role Phone Unavailable Primary Care Provider Unavailabl e Encounter Details Date Type Department Care Team (Late st Contact Info) Description 10/14/2024 Clinisync Result Encounter NOMS External Department Unsolicited Stephane Campbell DO [address] [place] [address] Social History Tobacco Use Types Packs/Day Years [...] AM EDT Office Visit ALYSSA ESTES [address] [place] [address] Stephane Campbell DO [address] [place] [address] documented as of this encounter Procedures Procedure Name Priority Date/Time Associated Diagnosis Comments ALL CBC WITH AUTO DIFF Routine 10/14/2024 11:54 AM EDT ALL BASIC METABOLIC PANEL Routine 10/14/2024 11:54 AM EDT documented in this encounter Results * (ABNORMAL) ALL BASIC METABOLIC PANEL (10/14/2024 [...] 0.55 - 1.02 mg/dL TBH TBH EGFR-AF [place] >60 >=60 mL/min/1.7 3m 2 TBH TBH EGFR-NON AF [place]I >60 >=60 mL/min/1.7 3m 2 TBH BUN CREATININE RATIO 25.6 TBH CALCIUM 8.7 8.5 - 10.1 mg/dL TBH 10/14/2024 11:5 4 AM EDT 10/14/2024 11:56 AM EDT Narrative CLINISYNC - 10/14/2024 12:37 PM EDT Stephane Campbell DO CLINISYNC Final Result [facility] * (ABNORMAL) ALL CBC WITH AUTO DIFF (10/14/2024 11:54 AM EDT) Pathologist [facility] TBH WBC 11.8(H) 4.0 - 11.0 10 [...] CLINISYNC - 10/14/2024 12:17 PM EDT us Stephane Campbell DO CLINIS[facility]NC Final Result [facility] documented in this encounter Visit Diagnoses Not on filedocumented in this encounter
--- OUTSIDE RECORDS SUMMARY | 2024-10-24 07:59 | XMS_ITS | Clinical Summary ---
Author Organization [facility] Address [id number] [address] [place] [address] Care Team Providers Care Cycle Analyst Name Role Phone Unavailable Primary Care Provider Unavailabl e Allergies No known active allergies Medications HYDROcodone-aceta minophen (NORCO) 5-325 mg per tablet 2 Active ondansetron (ZOFRAN) 4 mg tabletIndications :Other closed nondisplaced fracture of proximal end of left humerus, initial encounter Take 1 tablet (4 mg total) by mouth every 8 (eight) hours as needed for nausea or vomiting. 20 tablet 1 2 Active HYDROcodone-aceta minophen (NORCO) 5-325 mg per tabletIndications :Other closed nondisplaced fracture of proximal end of left humerus, initial encounter Take 1 tablet by mouth every 6 (six) hours as needed for pain. Max Daily Amount: 4 tablets 28 tablet 2 Active Active Problems No known active problems Social History Tobacco Use Types Packs/Day Years Used Date Smoking Tobacco: Never Smokeless Tobacco: Never Alcohol Use Standard Drinks/Week Comments Never 0 (1 standard drink = 0.6 oz pur e alcohol) Comments Unknown Sex and Gender Information Value Date Recorded Sex Assigned at Not on file Legal Sex Female 11:28 AM EST Gender Identity Not on file Sexual Orientation Not on file Last Filed Vital Signs Vital Sign Reading Time Taken Comments Blood Pressure - - Pulse - - Temperature - - Respiratory Rate - - Oxygen Saturation - - Inhaled Oxygen Concentration - - Weight 75.8 kg (167 lb) 05/11/2021 2:34 PM EDT Height 165.1 cm (5' 5 ) 05/11/2021 2:34 PM EDT Body Mass Index 27.79 05/11/2021 2:34 PM EDT Plan of Treatment Health Maintenance Due Date Last Done Comments Depression Screening 1964 Tobacco Screening 1964 Adult BMI Screening 1970 Zoster (Shingles) Vaccine (1 of 2) 2002 Fall Risk Screening 2017 DTaP,Tdap and Td Vaccines (2 - Td or Tdap) 05/31/2020 05/31/2010 Influenza Vaccine 10/06/2024 Medical Devices Not on file Insurance [employer] [place]
--- OUTSIDE RECORDS SUMMARY | 2024-10-24 07:59 | XMS_ITS | Encounter Summary ---
Author Organization [facility] Address [address] [facility] [place] [address] Care Team Providers Care President Finance [employer] Name Role Phone Unavailable Primary Care Provider Unavailabl e Encounter Details Date Type Department Care Team (Late Contact Info) Description 10/15/2024 Abstract ALYSSA ESTES [facility] [place] [address] Stephane Campbell DO [address], [facility] Social History Tobacco Use Types Packs/Day Years [...] 11:10 AM EDT Office Visit ALYSSA ESTES [facility] [place] [id number] Stephane Campbell DO [address], [facility] documented as of this encounter Visit Diagnoses Not on filedocumented in this encounter
--- OUTSIDE RECORDS SUMMARY | 2024-10-24 07:59 | XMS_ITS | Encounter Summary ---
Author Organization [facility] Address [address] [place] [address] Care Team Providers Care Construction Equipment Mechanic Helper Name Role Phone Unavailable Primary Care Provider Unavailabl e Reason for Visit * Reason Onset Date Comments Med Refill 10/16/2024 Encounter Details Date Type Department Care Team (Late Contact Info) Description 10/16/2024 Refill ALYSSA ESTES [address] [facility] [place] [address] Edilia Walsh, RAFI [address] [facility] [place] [address] Pelvic pain in female (Primary Dx); Pelvic mass; Post-menopausal bleeding Social History Tobacco Use Types [...] AM EDT Office Visit ALYSSA ESTES [address] [place] [address] Stephane Campbell DO [address] [facility] [address] [place], [place] [id number] documented as of this encounter Visit Diagnoses Diagnosis Pelvic pain in female- Primary Unspecified symptom associated with female genital organs Pelvic mass Abdominal or pelvic swelling, mass or lump, unspecified site Post-menopausal bleeding Postmenopausal bleeding documented in this encounter
[2024-10-24 08:05] LABS: Hematocrit 29.0 % (36.0-48.0); Hemoglobin 9.2 g/dL (12.0-16.0); Immature Granulocytes Abs Auto 0.09 10^3/uL (0.00-0.03); Immature Granulocytes Pct Auto 0.5 % (0.0-0.5); Lymphocytes Absolute Auto 1.8 10^3/uL (1.2-3.8); Mean Corpuscular HGB Conc 31.7 g/dL (29.9-35.2); Mean Corpuscular Hemoglobin 22.9 pg (26.7-34.0); Mean Corpuscular Volume 72.1 fL (81.0-99.0); Platelet Count 781 10^3/uL (150-450); Red Blood Count 4.02 10^6/uL (4.20-5.40); White Blood Count 18.2 10^3/uL (4.0-11.0)
[2024-10-24 08:20] VITALS: BP 139/79; PULSE 108; TEMP 36.9; O2SAT 97; BMI 23.8
[2024-10-24] MEDS: FAMOTIDINE/PF 20 MG/2 ML VIAL IV (08:47)
--- NOTE | 2024-10-24 09:09 | PC.NURSE ---
0909- Dr. Campbell aware of WBC. Dr. Campbell to bedside and talks with patient. Informed patient that she will need to be seen in the ER for severe abdominal pain. Patient and patients verbalizes a understanding.
--- NOTE | 2024-10-24 09:25 | PC.NURSE ---
Addendum entered by Crystal Finley RN 10/24/24 11:22: 0910- Report given to Rissa Darnell RN. Original Note: 0910- Patient taken to ER for evaluation. Patient continues to have abdominal pain. Patient rolling side to side.
== END 2024-10-24 09:10 | disposition home or self-care (01) ==
LOC: SURGOUT 07:56
PROVIDERS: Visit Provider Obstetrics & Gynecology
DX: N95.0 Postmenopausal bleeding (principal); Z53.8 Procedure and treatment not carried out for other reasons; N94.89 Other specified conditions associated with female genital organs and menstrual cycle; N85.8 Other specified noninflammatory disorders of uterus
CPT/HCPCS: 58558; 36415; 85025; J2405; J3490

== ENCOUNTER 2024-10-24 09:16 | Inpatient (IN) | payer MEDICARE, OTHER, SELFPAY ==
[2024-10-24] VITALS (44 sets, daily range): BP systolic 129–167; BP diastolic 72–103; PULSE 94–133; TEMP 36.9–37.6; O2SAT 88–97; BMI 23.7; BMI 24.9
--- NOTE | 2024-10-24 09:25 | XR_ITS ---
The [address] [address] Patient Name: MARCY VEGA MRN: [id number] date: 1950 Sex: F Assigned Patient Location: SURGOUT Current Patient Location: ED.MAIN Accession/Order Number: [id number] Exam Date: 10/24/2024 09:55 Report Date: 10/24/2024 10:44 At the request of: LIANNA SCHUMACHER MD Procedure: XR chest 1V PORTABLE AP ERECT CHEST 100 hours CLINICAL HISTORY: Abdominal pain and elevated white count. COMPARISON: None The right hemidiaphragm shows mild elevation. The heart is top normal in size. There is central granulomatous change on the left hepatic . There is no vascular congestion. No focal consolidation is noted. There is subtle scattered pulmonary nodularity. There is no sizable effusion or pneumothorax. The osseous structures are intact. XR/XR chest 1V IMPRESSION: GRANULOMATOUS CHANGES. PULMONARY NODULARITY. THERE ARE NO COMPARISON STUDIES OR HISTORY REGARDING KNOWN MALIGNANCY. CORRELATION WILL BE NEEDED ALONG WITH APPROPRIATE FOLLOW-UP. Impression dictated by: Dolores Cboian M.D. 10/24/2024 10:44 AM Dictation Location: [email or web address] Electronically authenticated by: [id number] Y Date: 10/24/2024 10:44
--- NOTE | 2024-10-24 09:25 | ECG_ITS ---
The [facility] Test Date: 2024-10-24 Pat Name: MARCY VEGA Department: Room: - Gender: Female Detacker: : 1950 Requested By: Order Number: [id number] Reading MD: CHELSEA JOHNSON M.D. Measurements Intervals [place] Rate: 103 P: 97 UT: 170 QRS: 24 QRSD: 102 T: 74 QT: 348 QTc: 408 Interpretive Statements 1120 Sinus tachycardia 3434 Septal myocardial infarction, age undetermined 9150 abnormal ECG Compared to ECG 10/14/2024 10:22:10 Sinus rhythm no longer present Incomplete right bundle-branch block no longer present Myocardial infarct finding still present Electronically Signed On 10-24-2024 20:00:12 EDT by CHELSEA JOHNSON M.D.
--- NOTE | 2024-10-24 09:25 | CT_ITS ---
The [address] [address] Patient Name: MARCY VEGA MRN: [id number] date: 1950 Sex: F Assigned Patient Location: ED.MAIN Current Patient Location: ED.MAIN Accession/Order Number: [id number] Exam Date: 10/24/2024 10:18 Report Date: 10/24/2024 11:00 At the request of: LIANNA SCHUMACHER MD Procedure: CT abdomen pelvis w con CT ABDOMEN AND PELVIS WITH CONTRAST COMPARISON: None CLINICAL DATA: Left lower abdominal pain and elevated white count. History of uterine mass. Patient was scheduled for surgery today. Spiral images were obtained through the abdomen and pelvis following 100 mL of Omnipaque 300. This CT exam was performed using one or more following dose reduction techniques: Automated exposure control, adjustment of the mA and/or kV according to patient size, or use of iterative reconstruction technique. Limited cuts through the lung bases show bilateral noncalcified pulmonary nodules measuring up to 13 mm in size at the left lower lobe. There is a small hiatal hernia. There is fatty infiltration of the liver. There are scattered hepatic hypodensities measuring up to 2.3 cm in size. Cysts are suspected. No calcified gallstones are seen. The spleen contains calcified granulomas. The pancreas and adrenal glands show no acute findings. There are symmetric bilateral renal nephrograms, without hydronephrosis. There are tiny bilateral cortical cysts and upper pole parapelvic cysts on the left. There is left nephrolithiasis. There are 2 or 3 tiny stones in close proximity at the midpole and a larger stone at the mid to lower pole measuring 11 mm. The abdominal aorta is normal caliber and there is mild atherosclerotic plaque. There is retroperitoneal lymphadenopathy. There is a large left periaortic lymph node with central low-attenuation measuring approximately 2.7 cm in shortest distance dimension. There are some additional smaller aortocaval periportal lymph nodes. No ascites is seen. The small bowel loops are not dilated. There is air and a small amount of stool at the right colon. There are segments of the left colon which are under distended and have apparent wall thickening. Slight dextroscoliotic curvature and degenerative changes are seen at the spine, greatest at L4-5. Images through the pelvis show no dilated small bowel. No appendiceal inflammation is seen. There is minimal sigmoid stool and some additional segments of underdistended with apparent wall thickening. No diverticular disease is noted. There is a heterogeneous mass associated with the uterus. There are also multiloculated cystic areas with enhancing garcia surrounding the uterus. The largest is posterior and in the sagittal plane is somewhat tubular extending over a length of approximately 13 cm. It measures approximately 7 cm in greatest cross-sectional dimension inferiorly. These findings could represent extension of disease from the uterine mass, hydrosalpinx, ovarian cysts, necrotic lymph nodes and/or abscess. Patient was scheduled for surgery today and therefore it is presumed there is prior existing imaging elsewhere. The urinary bladder shows no abnormalities for the degree of distention. There are small scattered mesenteric lymph nodes within the pelvis. There are also enlarged external iliac lymph nodes on the left measuring up to 2.[address]/CT abdomen pelvis w con IMPRESSION: PULMONARY NODULARITY, SUSPICIOUS FOR METASTATIC DISEASE. FATTY LIVER WITH CYSTS. RENAL CYSTS AND LEFT NEPHROLITHIASIS. NO BOWEL OR URINARY TRACT OBSTRUCTION. UTERINE MASS SUSPICIOUS FOR MALIGNANCY. MULTILOCULATED CYSTIC AREAS AROUND THE UTERUS WITH DIFFERENTIAL DESCRIBED ABOVE. ABDOMINAL AND PELVIC ADENOPATHY, LIKELY METASTATIC DISEASE. COMMENT: Comparison to prior existing outside studies may be helpful to determine if any of these findings are acute. Impression dictated by: Dolores Cobian M.D. 10/24/2024 11:00 AM Dictation Location: [place] [address] Electronically authenticated by: [id number] Y Date: 10/24/2024 11:00
--- NOTE | 2024-10-24 09:26 | ED_ITS ---
HPI HPI - General Adult General Chief complaint: Abdominal Pain Stated complaint: ABDOMINAL PAIN Time Seen by Provider: 10/24/24 09:17 Mode of arrival: PACU Limitations: no limitations History of Present Illness HPI narrative: 74-year-old female presented to the emergency department for abdominal pain. She points to her left lower quadrant and she has been having this for about 2 weeks but much worse in the past 3 days. She was scheduled to have gynecologic procedure in the operating room today but her white count was noted to be 18,000 so they sent her down here to be evaluated. She has not had much of an appetite. No trauma or fever. Related Data Home Medications ?Medication ?Instructions ?Recorded ?Confirmed oxycodone-acetaminophen 5 mg-325 1 tab PO Q6H PRN pain 10/24/24 10/24/24 mg tablet Allergies Allergy/AdvReac Type Severity Reaction Status Date / Time No Known Drug Allergies Allergy Verified 10/24/24 09:24 Opioid HPI Opioid Management Most Recent Opioid Data: Last Pain Scale 10 Today, 09:20 Last Pain Assessment Today, 08:20 Review of Systems ROS Narrative A ten point review of systems is negative except as noted above. PFSH PFSH Medical History (Updated 10/24/24 @ 12:54 by Robert Guzmán MD) Migraine ?G43.909 - Migraine, unspecified, not intractable, without status migrainosus (ICD-10) Postmenopausal bleeding ?N95.0 - Postmenopausal bleeding (ICD-10) Pelvic pain ?R10.2 - Pelvic and perineal pain (ICD-10) Nausea ?R11.0 - Nausea (ICD-10) Constipation ?K59.00 - Constipation, unspecified (ICD-10) Menopause ?Z78.0 - Asymptomatic menopausal state (ICD-10) Surgical History (Updated 10/14/24 @ 11:42 by Edilia Walsh) History of tonsillectomy ?Z90.89 - Acquired absence of other organs (ICD-10) Family History (Updated 10/14/24 @ 11:39 by Edilia Walsh) Other Delayed recovery from anesthesia Family history of bone cancer Family history of heart disease Family history of pulmonary embolism Family history of stroke Social History (Updated 10/14/24 @ 11:34 by Edilia Walsh) Within the past year, how often did you have a drink containing alcohol: never Score interpretation: A score less than 3 is consistent with normal alcohol consumption. Smoking status: Former smoker Non-prescribed substance use: denies use Previous occupational history: retired Highest level of school completed/degree received: 12th grade, no diploma Little interest or pleasure in doing things: not at all Feeling down, depressed, or hopeless: not at all Exam Narrative Exam Narrative: Nurses note and vital signs reviewed and patient is not hypoxic. General: The patient appears uncomfortable. She is in no respiratory distress Skin: Warm, dry, no pallor noted. There is no rash noted. Head: Normocephalic, atraumatic Eye: Normal conjunctiva, no drainage Ears, Nose, Mouth, and Throat: oral mucosa is moderately dry. Nares patent. Cardiovascular: Regular Rate and Rhythm Respiratory: Patient is in no distress, no accessory muscle use, lungs are clear to auscultation, no wheezing, rales or rhonchi Back: non-tender, no CVA tenderness bilaterally to percussion. GI: Soft and nondistended. She has tenderness in the left lower quadrant Musculoskeletal: The patient has no evidence of calf tenderness, no pitting edema, symmetrical pulses noted bilaterally Neurological: A&O, normal speech Psychiatric: Cooperative Constitutional Vital Signs, click to edit/add: Last Vital Signs Temp 98.4 F 10/24/24 09:20 Pulse 119 H 10/24/24 12:30 Resp 25 H 10/24/24 12:30 BP 137/85 10/24/24 11:01 Pulse Ox 96 10/24/24 11:20 O2 Del Method Room Air 10/24/24 09:20 Course Vital Signs Vital signs: Vital Signs Blood Pressure 144/76 H 10/24/24 09:18 Temperature 98.4 F 10/24/24 09:20 Pulse Rate 119 H 10/24/24 12:30 Respiratory Rate 25 H 10/24/24 12:30 Blood Pressure 137/85 10/24/24 11:01 Pulse Oximetry 96 10/24/24 11:20 Oxygen Delivery Method Room Air 10/24/24 09:20 Medical Decision Making MDM Narrative Medical decision making narrative: The patient's workup indicates she has a urinary tract infection and leukocytosis. CT scan is concerning for metastatic disease with pulmonary nodules and enlarged lymph nodes in the abdomen and pelvis. There is no evidence of diverticulitis or colitis or an abscess. Cultures were obtained and she was given IV Rocephin. I spoke to Dr. Campbell and Dr. Bautista who is gynecology oncologist at [facility] in [place]. She does not feel that transfer is necessary. She reports that they would not perform any procedures while she has a urinary tract infection. She recommends treatment here for the UTI and then she is going to see the patient in her office on Sunday, in the morning. This was explained to the patient and her family and everybody is in agreement with this plan. Differential Diagnosis Differential Diagnosis: Diverticulitis, colitis, constipation, UTI, pyelonephritis, abscess Lab Data Lab results reviewed: Yes I reviewed the patient's lab results Labs: Lab Results 10/24/24 10/24/24 10/24/24 Range/Units 08:01 09:40 10:18 WBC 17.9 H (4.0-11.0) 10^3/uL RBC 3.86 L (4.20-5.40) 10^6/uL Hgb 8.6 L (12.0-16.0) g/dL Hct 27.7 L (36.0-48.0) % MCV 71.8 L (81.0-99.0) fL MCH 22.3 L (26.7-34.0) pg MCHC 31.0 (29.9-35.2) g/dL RDW 16.4 H (11.0-15.0) % Plt Count 705 H (150-450) 10^3/uL MPV 9.8 (9.5-13.5) fL Neut % (Auto) 83.1 H (43.0-75.0) % Lymph % (Auto) 9.0 L (20.5-60.0) % [place] % (Auto) 7.0 (1.7-12.0) % Eos % (Auto) 0.1 L (0.9-7.0) % Baso % (Auto) 0.2 (0.2-2.0) % Neut # (Auto) 14.9 H (1.4-6.5) 10^3/uL Lymph # (Auto) 1.6 (1.2-3.8) 10^3/uL [place] # (Auto) 1.3 H (0.3-0.8) 10^3/uL Eos # (Auto) 0.0 (0.0-0.7) 10^3/uL Baso # (Auto) 0.0 (0.0-0.1) 10^3/uL Abs Immat Gran (auto) 0.11 H (0.00-0.03) 10^3/uL Imm/Tot Granulo (auto) 0.6 H (0.0-0.5) % Sodium 142 (136-145) mmol/L Potassium 3.1 L (3.5-5.1) mmol/L Chloride 102 (98-107) mmol/L Carbon Dioxide 27.9 (21.0-32.0) mmol/L Anion Gap 15.2 BUN 21.0 H (7.0-18.0) mg/dL Creatinine 0.82 (0.55-1.02) mg/dL Est GFR ( Amer) >60 (>=60 mL/min/1.73m^2) Est GFR (Non-Af Amer) >60 (>=60 mL/min/1.73m^2) BUN/Creatinine Ratio 25.6 Glucose 121 H (74-106) mg/dL Calcium 9.4 (8.5-10.1) mg/dL Total Bilirubin 0.7 (0.2-1.0) mg/dL Direct Bilirubin 0.3 H (0.0-0.2) mg/dL AST 18 (15-37) U/L ALT 40 (14-59) U/L Alkaline Phosphatase 212 H (46-116) U/L Troponin I High Sens 4.8 (4.0-51.3) pg/mL Total Protein 7.5 (6.4-8.2) g/dL Albumin 2.3 L (3.4-5.0) g/dL Globulin 5.2 g/dL Albumin/Globulin Ratio 0.4 Amylase 8 L (25-115) U/L Lipase <10.0 L (16.0-77.0) U/L Urine Color Brown A (YELLOW) Urine Clarity Cloudy A (CLEAR) Urine pH 6.0 (5.0-9.0) Ur Specific [place] 1.025 (1.005-1.025) Urine Protein 100 A (NEG/TRACE) mg/dL Urine Glucose (UA) Negative (NEGATIVE) mg/dL Urine Ketones 15 A (NEGATIVE) mg/dL Urine Occult Blood Large A (NEGATIVE) Urine Nitrite Negative (NEGATIVE) Urine Bilirubin Negative (NEGATIVE) Urine Urobilinogen 0.2 (0.2-1.0) EU/dL Ur Leukocyte Esterase Moderate A (NEGATIVE) Urine RBC 10-20 A (0-2) #/HPF Urine WBC 75-100 A (NONE SEEN) #/HPF Ur Squamous Epith Cells Few A (NONE/RARE) #/LPF Urine Crystals None seen (None Seen) #/HPF Urine Bacteria Large A (NONE SEEN) #/HPF Urine Casts None seen (NONE SEEN) #/LPF Urine Mucus None seen (NONE SEEN) Ur Culture Indicated? Yes-[facility] [place] Imaging Data CT scan - abdomen: Radiologist's impression: ITS Impressions Abdomen/Pelvis CT 10/24/24 09:25 IMPRESSION: PULMONARY NODULARITY, SUSPICIOUS FOR METASTATIC DISEASE. FATTY LIVER WITH CYSTS. RENAL CYSTS AND LEFT NEPHROLITHIASIS. NO BOWEL OR URINARY TRACT OBSTRUCTION. UTERINE MASS SUSPICIOUS FOR MALIGNANCY. MULTILOCULATED CYSTIC AREAS AROUND THE UTERUS WITH DIFFERENTIAL DESCRIBED ABOVE. ABDOMINAL AND PELVIC ADENOPATHY, LIKELY METASTATIC DISEASE. COMMENT: Comparison to prior existing outside studies may be helpful to determine if any of these findings are acute. Impression dictated by: Dolores Cobian M.D. 10/24/2024 11:00 AM Dictation Location: [employer] Electronically authenticated by: [id number] Y Date: 10/24/2024 11:00 Chest X-Ray 10/24/24 09:25 IMPRESSION: GRANULOMATOUS CHANGES. PULMONARY NODULARITY. THERE ARE NO COMPARISON STUDIES OR HISTORY REGARDING KNOWN MALIGNANCY. CORRELATION WILL BE NEEDED ALONG WITH APPROPRIATE FOLLOW-UP. Impression dictated by: Dolores Cobian M.D. 10/24/2024 10:44 AM Dictation Location: [facility] Electronically authenticated by: [id number] Y Date: 10/24/2024 10:44 ECG Data Attestation: I personally reviewed and interpreted this ECG as follows: (EKG on my interpretation shows sinus rhythm with a rate of 103) Discharge Plan Discharge Chief Complaint: Abdominal Pain Clinical Impression: Urinary tract infection, Leukocytosis Patient Disposition: Admitted As Inpatient Time of Disposition Decision: 12:54 Condition: Fair
[2024-10-24] MEDS: MORPHINE SULFATE 4 MG/ML VIAL IV ×3 (09:35→13:46)
[2024-10-24 09:49] LABS: Alanine Aminotransferase 40 U/L (14-59); Albumin Globulin Ratio 0.4; Albumin Level 2.3 g/dL (3.4-5.0); Alkaline Phosphatase 212 U/L (46-116); Anion Gap 15.2; Aspartate Amino Transferase 18 U/L (15-37); Blood Urea Nitrogen 21.0 mg/dL (7.0-18.0); Calcium 9.4 mg/dL (8.5-10.1); Carbon Dioxide 27.9 mmol/L (21.0-32.0); Chloride 102 mmol/L (98-107); Estimated GFR (African America >60 (>=60 mL/min/1.73m^2); Estimated GFR (Non-African Ame >60 (>=60 mL/min/1.73m^2); Globulin 5.2 g/dL; Glucose 121 mg/dL (74-106); Potassium 3.1 mmol/L (3.5-5.1); Sodium 142 mmol/L (136-145); Total Protein 7.5 g/dL (6.4-8.2)
[2024-10-24 09:53] LABS: Amylase 8 U/L (25-115); Lipase <10.0 U/L (16.0-77.0)
[2024-10-24 09:53] LABS: Hematocrit 27.7 % (36.0-48.0); Hemoglobin 8.6 g/dL (12.0-16.0); Immature Granulocytes Abs Auto 0.11 10^3/uL (0.00-0.03); Immature Granulocytes Pct Auto 0.6 % (0.0-0.5); Lymphocytes Absolute Auto 1.6 10^3/uL (1.2-3.8); Mean Corpuscular HGB Conc 31.0 g/dL (29.9-35.2); Mean Corpuscular Hemoglobin 22.3 pg (26.7-34.0); Mean Corpuscular Volume 71.8 fL (81.0-99.0); Platelet Count 705 10^3/uL (150-450); Red Blood Count 3.86 10^6/uL (4.20-5.40); White Blood Count 17.9 10^3/uL (4.0-11.0)
[2024-10-24 10:33] LABS: Glucose Urine UA NEGATIVE (NEGATIVE)
[2024-10-24 10:53] LABS: Cast Seen? NONE SEEN #/LPF (NONE SEEN); Crystals Seen? None Seen #/HPF (None Seen); Urine Culture Indicated YES-FRMC
[2024-10-24 13:17] LABS: Lactate/Lactic Acid 1.3 mmol/L (0.4-2.0)
[2024-10-24] MEDS: HYDROMORPHONE HCL 0.5 MG/0.5 ML SYRINGE IV ×2 (16:59→20:47)
[2024-10-24] MEDS: METOPROLOL TARTRATE 5 MG/5 ML VIAL IVP (22:43)
[2024-10-24] MEDS: 0.9 % SODIUM CHLORIDE 250 ML 10 ML IV (22:48)
[2024-10-25] VITALS (12 sets, daily range): BP systolic 97–135; BP diastolic 57–74; PULSE 82–112; TEMP 36.6–37.1; O2SAT 88–97
[2024-10-25] MEDS: HYDROMORPHONE HCL 0.5 MG/0.5 ML SYRINGE IV ×2 (01:02→19:50)
[2024-10-25] MEDS: METOPROLOL TARTRATE 5 MG/5 ML VIAL IVP (04:22)
[2024-10-25] MEDS: ACETAMINOPHEN 325 MG TABLET 650 MG PO ×3 (04:23→21:15)
[2024-10-25 07:24] LABS: Hematocrit 25.1 % (36.0-48.0); Hemoglobin 7.9 g/dL (12.0-16.0); Mean Corpuscular HGB Conc 31.5 g/dL (29.9-35.2); Mean Corpuscular Hemoglobin 22.8 pg (26.7-34.0); Mean Corpuscular Volume 72.3 fL (81.0-99.0); Platelet Count 672 10^3/uL (150-450); Red Blood Count 3.47 10^6/uL (4.20-5.40); White Blood Count 16.5 10^3/uL (4.0-11.0)
[2024-10-25 08:12] LABS: Alanine Aminotransferase 19 U/L (14-59); Albumin Globulin Ratio 0.4; Albumin Level 1.7 g/dL (3.4-5.0); Alkaline Phosphatase 161 U/L (46-116); Anion Gap 11.3; Aspartate Amino Transferase 13 U/L (15-37); Blood Urea Nitrogen 12.0 mg/dL (7.0-18.0); Calcium 8.6 mg/dL (8.5-10.1); Carbon Dioxide 31.5 mmol/L (21.0-32.0); Chloride 100 mmol/L (98-107); Estimated GFR (African America >60 (>=60 mL/min/1.73m^2); Estimated GFR (Non-African Ame >60 (>=60 mL/min/1.73m^2); Globulin 4.5 g/dL; Glucose 108 mg/dL (74-106); Iron 6.0 ug/dL (50.0-170.0); Magnesium 1.9 mg/dL (1.8-2.4); Percent Iron Saturation 4.0 %; Sodium 140 mmol/L (136-145); Total Iron Binding Capacity 150.0 ug/dL (250.0-450.0); Total Protein 6.2 g/dL (6.4-8.2)
[2024-10-25 08:14] LABS: Potassium 2.8 mmol/L (3.5-5.1)
[2024-10-25] MEDS: POTASSIUM CHLORIDE 10 MEQ ER TABLET 40 MEQ PO (09:32)
[2024-10-25] MEDS: OXYCODONE HCL 5 MG TABLET PO ×2 (09:33→21:15)
[2024-10-25] MEDS: SENNOSIDES/DOCUSATE SODIUM 1 TAB TABLET PO ×2 (09:33→21:06)
--- NOTE | 2024-10-25 09:39 | P.HP_ITS ---
HPI H&P: HPI History of Present Illness Chief complaint: UTI LEUKOCYTOSIS Narrative: Mrs. Daniel is a 74-year-old female who came to the emergency room complaining of lower abdominal pain. She was found to have UTI. She was found to have extensive metastatic malignancy, uterus is the primary suspected. Patient has been having vaginal bleed for several months. She was seen by [facility] recently in the outpatient setting and plan to proceed with [facility] investigation suspecting that she has malignancy. CAT scan of the abdomen showed uterine changes suspicious for cancer as well as lymphadenopathy and lung nodules. Progressive weakness and fatigue. Progressive weight loss. Opioid HPI Opioid Management Most Recent Pain and Opioid Data: Last Pain Scale 6 Today, 09:33 Last Pain Assessment 10/24/24, 16:00 Last ORT Total Score 0 10/24/24, 15:36 Last ORT Risk Category Low Risk 10/24/24, 15:36 Review of Systems ROS Status of ROS 10 or more systems reviewed and unremark able except as noted in history and below [facility] PFS Medical History (Updated 10/25/24 @ 09:42 by Martha Cooper MD) Migraine ?G43.909 - Migraine, unspecified, not intractable, without status migrainosus (ICD-10) Postmenopausal bleeding ?N95.0 - Postmenopausal bleeding (ICD-10) Pelvic pain ?R10.2 - Pelvic and perineal pain (ICD-10) Nausea ?R11.0 - Nausea (ICD-10) Constipation ?K59.00 - Constipation, unspecified (ICD-10) Menopause ?Z78.0 - Asymptomatic menopausal state (ICD-10) Surgical History (Updated 10/14/24 @ 11:42 by Edilia Walsh) History of tonsillectomy ?Z90.89 - Acquired absence of other organs (ICD-10) Family History (Updated 10/14/24 @ 11:39 by Edilia Walsh) Other Delayed recovery from anesthesia Family history of bone cancer Family history of heart disease Family history of pulmonary embolism Family history of stroke Social History (Updated 10/24/24 @ 15:48 by Carlotta Melara) Within the past year, how often did you have a drink containing alcohol: never Score interpretation: A score less than 3 is consistent with normal alcohol consumption. Smoking status: Former smoker Non-prescribed substance use: denies use Previous occupational history: retired Highest level of school completed/degree received: 12th grade, no diploma Are you now , , , , never or living with a partner: In a typical week, how many times do you talk on the telephone with family, friends, or neighbors: 3 or more times per week How often do you get together with friends or relatives: 3 or more times per week How often do you attend mandaeism or zoroastrianism services: never Do you belong to any clubs or organizations such as mandaeism groups unions, [employer] or athletic groups, or school groups: no Total score: 2 Score interpretation: A score of greater than or equal to 2 indicates the lowest level of social isolation. Little interest or pleasure in doing things: several days Feeling down, depressed, or hopeless: not at all Meds Home Medications and Allergies Home Medications ?Medication ?Instructions ?Recorded ?Confirmed ?Type oxycodone-acetaminophen 5 mg-325 1 tab PO Q6H PRN pain 10/24/24 10/24/24 History mg tablet Allergies Allergy/AdvReac Type Severity Reaction Status Date / Time No Known Drug Allergies Allergy Verified 10/24/24 09:24 Exam Narrative Exam Narrative: [pt is awake and alert. oriented to place, time and person, cachexia, frailty appearance. HEENT: [place] conjunctiva and NL buccal mucosa bitemporal muscle Neck: Supple, no tenderness Endocrine: No Thyromegaly. Vascular: No JVD or carotid bruit. Lymphatic: No cervical lymphadenopathy. Chest: CTA no DTP. Heart RRR, no extra sound or murmur. Abd: Soft, moderate tenderness in the left suprapubic area, left lower quadrant. , no rebound and no rigidity. Increase abd girth therefore clinically I could not exclude the possibility of intra abd mass or organomegaly. LE: No cyanosis or clubbing, no varices or edema. Upper and lower extremities muscle wasting and atrophy. Neuro: A A O. Nl speech, comprehension and attention. Nl and symetrical motor and tone examination through out. []] Constitutional Vital Signs, click to edit/add: Last Vital Signs Temp 97.8 F 10/25/24 06:56 Pulse 90 10/25/24 09:31 Resp 18 10/25/24 09:31 BP 97/65 10/25/24 09:31 Pulse Ox 88 L 10/25/24 09:39 O2 Del Method Room Air 10/25/24 09:39 O2 Flow Rate 2 10/25/24 09:31 Results Labs Labs: Short CBC 10/24/24 10/25/24 Range/Units 09:40 07:00 WBC 17.9 H 16.5 H (4.0-11.0) 10^3/uL Hgb 8.6 L 7.9 L (12.0-16.0) g/dL Hct 27.7 L 25.1 L (36.0-48.0) % Plt Count 705 H 672 H (150-450) 10^3/uL BMP 10/24/24 10/25/24 08:01 07:00 Sodium 142 140 Potassium 3.1 L 2.8 L* Chloride 102 100 Carbon Dioxide 27.9 31.5 BUN 21.0 H 12.0 Creatinine 0.82 0.72 Glucose 121 H 108 H Calcium 9.4 8.6 Liver Function 10/24/24 10/25/24 Range/Units 08:01 07:00 Total Bilirubin 0.7 0.5 (0.2-1.0) mg/dL Direct Bilirubin 0.3 H (0.0-0.2) mg/dL AST 18 13 L (15-37) U/L ALT 40 19 (14-59) U/L Alkaline Phosphatase 212 H 161 H (46-116) U/L Albumin 2.3 L 1.7 L (3.4-5.0) g/dL Urine 10/24/24 Range/Units 10:18 Urine Color Brown A (YELLOW) Urine Clarity Cloudy A (CLEAR) Urine pH 6.0 (5.0-9.0) Ur Specific [place] 1.025 (1.005-1.025) Urine Protein 100 A (NEG/TRACE) mg/dL Urine Glucose (UA) Negative (NEGATIVE) mg/dL Assessment and Plan Assessment and Plan (1) Sepsis: (2) Uterine cancer: (3) Metastasis: (4) Moderate protein malnutrition: (5) Anemia: (6) Hypokalemia: Plan Sepsis present on admission UTI. No evidence radiologically for colo vesicle fistula however I cannot exclude the possibility entirely Start the patient IV fluid infusion Blood and urine culture Lactic is normal. Start patient on intravenous ceftriaxone pending culture report Metastatic malignancy. Suspect uterus is the primary Mets to lung and lymph node Ongoing slow vaginal bleed Patient was recently seen by [facility] in the outpatient setting. Plan is to proceed with additional [facility] oncological care in [place]. Anemia, likely caused by underlying metastatic malignancy as well as ongoing slow vaginal bleed. Iron study is consistent with a mixed etiology. Certainly there could be an element of iron deficiency May need blood transfusion. Requested type and cross and repeat H&H. DVT prophylaxis Avoid pharmacological DVT prophy intervention due to ongoing vaginal bleed. SCD, mechanical prophylactic measures Hypokalemia Potassium supplementation. Magnesium and phosphorus are normal. Cachexia, frailty, muscle wasting, moderate protein calorie malnutrition Likely caused by underlying malignancy I started patient on oral protein supplementation ]
[2024-10-25] MEDS: POTASSIUM CHLORIDE 20 MEQ in 0.9 % SODIUM CHLORIDE 250 ML 130 MEQ IV (10:21)
[2024-10-25 10:29] LABS: Hematocrit 28.0 % (36.0-48.0); Hemoglobin 8.7 g/dL (12.0-16.0)
[2024-10-25 10:52] LABS: Ferritin 108.0 ng/mL (8.0-252.0); Folate 10.70 ng/mL (8.60-58.90)
[2024-10-25] MEDS: POTASSIUM CHLORIDE IN WATER 10 MEQ/100 ML PREMIX 100 MEQ IV ×2 (19:44→21:05)
[2024-10-25] MEDS: ZOLPIDEM TARTRATE 10 MG TABLET PO (22:55)
[2024-10-26] VITALS (18 sets, daily range): BP systolic 107–132; BP diastolic 61–82; PULSE 84–123; TEMP 36.4–37.1; O2SAT 91–98
[2024-10-26] MEDS: ACETAMINOPHEN 325 MG TABLET 650 MG PO ×3 (05:19→19:55)
[2024-10-26] MEDS: OXYCODONE HCL 5 MG TABLET PO ×3 (05:20→17:55)
[2024-10-26 06:37] LABS: Hemoglobin 7.3 g/dL (12.0-16.0); Mean Corpuscular HGB Conc 31.5 g/dL (29.9-35.2); Mean Corpuscular Hemoglobin 22.9 pg (26.7-34.0); Mean Corpuscular Volume 72.7 fL (81.0-99.0); Platelet Count 617 10^3/uL (150-450); Red Blood Count 3.19 10^6/uL (4.20-5.40); White Blood Count 17.9 10^3/uL (4.0-11.0)
[2024-10-26 06:37] LABS: Vitamin B12 1901 pg/mL (232-1245)
[2024-10-26 06:47] LABS: Hematocrit 23.2 % (36.0-48.0)
[2024-10-26 06:57] LABS: Blood Urea Nitrogen 14.0 mg/dL (7.0-18.0); Calcium 8.1 mg/dL (8.5-10.1); Carbon Dioxide 27.3 mmol/L (21.0-32.0); Estimated GFR (African America >60 (>=60 mL/min/1.73m^2); Estimated GFR (Non-African Ame >60 (>=60 mL/min/1.73m^2); Glucose 105 mg/dL (74-106); Magnesium 1.9 mg/dL (1.8-2.4)
[2024-10-26 07:02] LABS: Anion Gap 12.3; Chloride 102 mmol/L (98-107); Potassium 3.6 mmol/L (3.5-5.1); Sodium 138 mmol/L (136-145)
[2024-10-26] MEDS: POTASSIUM PHOS,M-BASIC-D-BASIC 30 MMOL in 0.9 % SODIUM CHLORIDE 250 ML 43.333 MMOL IV (08:03)
--- NOTE | 2024-10-26 09:23 | PM.PN ---
Progress Note: Subjective Subjective Interval history: Patient is feeling better. Improvement of nausea. No chest pain. Improvement of abdominal pain. Exam Narrative Exam Narrative: [pt is awake and alert. oriented to place, time and person, cachexia, frailty appearance. HEENT: [place] conjunctiva and NL buccal mucosa bitemporal muscle Neck: Supple, no tenderness Endocrine: No Thyromegaly. Vascular: No JVD or carotid bruit. Lymphatic: No cervical lymphadenopathy. Chest: CTA no DTP. Heart RRR, no extra sound or murmur. Abd: Soft, mild tenderness in the left suprapubic area, left lower quadrant., no rebound and no rigidity. Increase abd girth therefore clinically I could not exclude the possibility of intra abd mass or organomegaly. LE: No cyanosis or clubbing, no varices or edema. Upper and lower extremities muscle wasting and atrophy. Neuro: A A O. Nl speech, comprehension and attention. Nl and symetrical motor and tone examination through out. []] Constitutional Vital Signs, click to edit/add: Last Vital Signs Temp 98.0 F 10/26/24 04:00 Pulse 96 H 10/26/24 08:00 Resp 16 10/26/24 08:00 BP 125/77 10/26/24 04:00 Pulse Ox 91 L 10/26/24 05:31 O2 Del Method Room Air 10/26/24 05:31 O2 Flow Rate 1 10/25/24 23:49 Progress Note: Objective Labs Labs: Short CBC 10/25/24 10/26/24 Range/Units 09:54 06:22 WBC 17.9 H (4.0-11.0) 10^3/uL Hgb 8.7 L 7.3 L (12.0-16.0) g/dL Hct 28.0 L 23.2 L* (36.0-48.0) % Plt Count 617 H (150-450) 10^3/uL BMP 10/26/24 06:22 Sodium 138 Potassium 3.6 Chloride 102 Carbon Dioxide 27.3 BUN 14.0 Creatinine 0.60 Glucose 105 Calcium 8.1 L Progress Note: A&P Assessment and Plan (1) Sepsis: (2) Uterine cancer: (3) Metastasis: (4) Moderate protein malnutrition: (5) Anemia: (6) Hypokalemia: Plan Sepsis present on admission UTI. No evidence radiologically for colo vesicle fistula however I cannot exclude the possibility entirely Start the patient IV fluid infusion Blood and urine culture pending Lactic is normal. Continue intravenous ceftriaxone pending culture report Metastatic malignancy. Suspect uterus is the primary Mets to lung and lymph node Ongoing slow vaginal bleed Patient was recently seen by OUTSIDE EVENT SALES SPECIALIST in the outpatient setting. Plan is to proceed with additional OUTSIDE EVENT SALES SPECIALIST oncological care in [place]. Anemia, likely caused by underlying metastatic malignancy as well as ongoing slow vaginal bleed. Iron study is consistent with a mixed etiology. Certainly there could be an element of iron deficiency Proceed with the blood transfusion given borderline hypotension. DVT prophylaxis Avoid pharmacological DVT prophy intervention due to ongoing vaginal bleed. SCD, mechanical prophylactic measures Hypokalemia and hypophosphatemia Potassium phosphate supplementation. Magnesium and phosphorus are normal. Cachexia, frailty, muscle wasting, moderate protein calorie malnutrition Likely caused by underlying malignancy I started patient on oral protein supplementation
[2024-10-26] MEDS: IRON SUCROSE COMPLEX 200 MG in 0.9 % SODIUM CHLORIDE 100 ML 220 MG IV (10:02)
[2024-10-26] MEDS: SENNOSIDES/DOCUSATE SODIUM 1 TAB TABLET PO (10:02)
[2024-10-26] MEDS: ENSURE HP 237 ML LIQUID PO (10:02)
[2024-10-26] MEDS: 0.9 % SODIUM CHLORIDE 250 ML 10 ML IV (11:35)
[2024-10-26] MEDS: MAGNESIUM SULFATE/D5W 1 GM/100 ML PREMIX IV (19:51)
[2024-10-26] MEDS: ZOLPIDEM TARTRATE 10 MG TABLET PO (21:17)
[2024-10-27] VITALS (8 sets, daily range): BP systolic 111–152; BP diastolic 59–84; PULSE 91–113; TEMP 36.4–37.1; O2SAT 86–92
[2024-10-27] MEDS: OXYCODONE HCL 5 MG TABLET PO ×4 (01:22→19:29)
[2024-10-27] MEDS: ACETAMINOPHEN 325 MG TABLET 650 MG PO ×3 (05:26→19:29)
[2024-10-27 05:38] LABS: Hematocrit 31.4 % (36.0-48.0); Hemoglobin 10.2 g/dL (12.0-16.0); Mean Corpuscular HGB Conc 32.5 g/dL (29.9-35.2); Mean Corpuscular Hemoglobin 24.3 pg (26.7-34.0); Mean Corpuscular Volume 74.8 fL (81.0-99.0); Platelet Count 689 10^3/uL (150-450); Red Blood Count 4.20 10^6/uL (4.20-5.40); White Blood Count 27.3 10^3/uL (4.0-11.0)
[2024-10-27 06:12] LABS: Anion Gap 13.2; Blood Urea Nitrogen 11.0 mg/dL (7.0-18.0); Calcium 8.3 mg/dL (8.5-10.1); Carbon Dioxide 26.8 mmol/L (21.0-32.0); Chloride 101 mmol/L (98-107); Estimated GFR (African America >60 (>=60 mL/min/1.73m^2); Estimated GFR (Non-African Ame >60 (>=60 mL/min/1.73m^2); Glucose 95 mg/dL (74-106); Potassium 4.0 mmol/L (3.5-5.1); Sodium 137 mmol/L (136-145)
[2024-10-27 06:14] LABS: Atypical Lymphocytes % Manual 0.0 %; Atypical Lymphocytes Abs Man 0.00; Basophils Abs Manual 0.00 10^3/uL (0.00-0.10); Basophils Percent Manual 0.0 % (0.2-2.0); Eosinophils Absolute Manual 0.27 10^3/uL (0.00-0.70); Eosinophils Percent Manual 1.0 % (0.9-7.0); Hypersegmented Neutrophils 1+; Lymphocytes Absolute Manual 1.09 10^3/uL (1.20-3.80); Lymphocytes Percent Manual 4.0 % (20.5-60.0); Metamyelocytes Absolute Manual 0.27; Monocytes Absolute Manual 1.63 10^3/uL (0.30-0.80); Monocytes Percent Manual 6.0 % (1.7-12.0); Myelocytes % Manual 2.0; Myelocytes Absolute Manual 0.54; Segmented Neut Absolute Manual 23.47 10^3/uL (1.4-6.5); Segmented Neutrophils % Manual 86.0 (43.0-75.0)
[2024-10-27 06:15] LABS: Ovalocytes 1+; Poikilocytosis 2+; Schistocytes 2+; Stomatocytes 1+
--- NOTE | 2024-10-27 08:00 | CM.NOTE ---
Rounds made with Dr. Cooper, discussed with pt and daughter plan of care. Pt will discharge by 6am to f/u with Dr. Bautista. Appointment scheduled for Oct 28 8:30
[2024-10-27] MEDS: SOD PHOSPHATE,MONOBASIC-DIBAS 30 MMOL in 0.9 % SODIUM CHLORIDE 250 ML 43.333 MMOL IV (09:28)
[2024-10-27] MEDS: SENNOSIDES/DOCUSATE SODIUM 1 TAB TABLET PO ×2 (09:28→20:43)
--- NOTE | 2024-10-27 10:30 | CT_ITS ---
The [address] [address] Patient Name: MARCY VEGA MRN: [id number] date: 1950 Sex: F Assigned Patient Location: MS Current Patient Location: Accession/Order Number: [id number] Exam Date: 10/27/2024 11:55 Report Date: 10/27/2024 12:48 At the request of: LAMONT MOREIRA MD Procedure: CT abdomen pelvis w con CT ABDOMEN AND PELVIS WITH CONTRAST COMPARISON: 10/24/2024 CLINICAL DATA: Persistent left mid to lower abdominal pain. Spiral images were obtained through the abdomen and pelvis findings oral and 100 mL of Omnipaque 300. This CT exam was performed using one or more following dose reduction techniques: Automated exposure control, adjustment of the mA and/or kV according to patient size, or use of iterative reconstruction technique. Limited cuts through the lung bases show developing small layering pleural effusions. There is also atelectasis. Bilateral pulmonary nodularity is again seen. A small hiatal hernia is noted. The gallbladder wall is borderline in thickness. There are no intraluminal abnormalities. There is fatty infiltration of the liver. There are similar hepatic hypodensities that are probably cysts. There is a hypodensity in the periportal region measuring 2.5 cm which is not clearly a simple cystic today. Given the other findings, metastatic disease at this site cannot be excluded. Splenic granulomas are seen. No pancreatic abnormalities are noted. The adrenal glands are unchanged. There are symmetric renal nephrograms. There are tiny cortical cysts bilaterally and parapelvic cysts on the left. There is continued left nephrolithiasis with stones measuring up to 10 - 11 mm in size. No hydronephrosis is present. No ureteral dilatation or stones are seen. The abdominal aorta is normal caliber. A trace amount of free fluid is present at the left paracolic gutter and between some of the bowel loops at the right upper quadrant. There is similar left periaortic adenopathy. The small bowel loops are borderline in caliber and contain fluid, contrast and/or air. There is mild stool within the colon, greater on the right. There is levoscoliotic curvature and degenerative changes spine. Images through the pelvis show additional borderline caliber small bowel loops. There is no appendiceal inflammation. The distal colon is mostly decompressed. No prominent diverticular disease is seen. The uterus is heterogeneous with a more masslike area centrally. There are several cystic areas around the pelvis which have enhancing garcia. These findings are slightly more prominent. The largest collection is still at the posterior cul-de-sac and extending posterior to the uterus. No other free fluid is noted. The urinary bladder shows no CT abnormalities. There is continued left external iliac chain adenopathy. CT/CT abdomen pelvis w con IMPRESSION: DEVELOPING MILD BASILAR PLEURAL PARENCHYMAL CHANGES. CONTINUED PULMONARY NODULARITY SUGGESTING METASTATIC DISEASE. DEVELOPING BORDERLINE DISTENDED SMALL BOWEL LOOPS. ILEUS IS FAVORED HOWEVER EARLY PARTIAL OBSTRUCTION IS NOT COMPLETELY EXCLUDED. CORRELATION AND FOLLOW-UP WILL BE NEEDED. FATTY LIVER WITH SUSPECTED CYSTS AND INDETERMINATE AREA IN THE PERIPORTAL REGION, DESCRIBED. RENAL CYSTS AND LEFT NEPHROLITHIASIS. TRACE AMOUNT OF DEVELOPING FREE ABDOMINAL FLUID. SUSPECTED METASTATIC ABDOMINAL AND PELVIC LYMPHADENOPATHY. ABNORMAL UTERUS HIGHLY SUSPICIOUS FOR MALIGNANCY. INCREASING PROMINENCE OF CYSTIC AREAS AROUND THE UTERUS HAVING THICKENED ENHANCING GARCIA. THIS COULD BE RELATE TO THE SUSPECTED UTERINE NEOPLASM HOWEVER MULTIFOCAL ABSCESS IS POSSIBLE IN THE CORRECT CLINICAL SETTING. CORRELATION AND FOLLOW-UP ARE RECOMMENDED. Impression dictated by: Dolores Cobian M.D. 10/27/2024 12:48 PM Dictation Location: [place] [address] Electronically authenticated by: [id number] Y Date: 10/27/2024 12:48
--- NOTE | 2024-10-27 11:15 | PM.PN ---
Progress Note: Subjective Subjective Interval history: Patient is feeling better. Improvement of nausea. No chest pain. Improvement but persistent of abdominal pain. Exam Narrative Exam Narrative: [pt is awake and alert. oriented to place, time and person, cachexia, frailty appearance. HEENT: [place] conjunctiva and NL buccal mucosa bitemporal muscle Neck: Supple, no tenderness Endocrine: No Thyromegaly. Vascular: No JVD or carotid bruit. Lymphatic: No cervical lymphadenopathy. Chest: CTA no DTP. Heart RRR, no extra sound or murmur. Abd: Soft, mild to moderate tenderness in the left suprapubic area, left lower quadrant., no rebound and no rigidity. Increase abd girth therefore clinically I could not exclude the possibility of intra abd mass or organomegaly. LE: No cyanosis or clubbing, no varices or edema. Upper and lower extremities muscle wasting and atrophy. Neuro: A A O. Nl speech, comprehension and attention. Nl and symetrical motor and tone examination through out. []] Constitutional Vital Signs, click to edit/add: Last Vital Signs Temp 98.7 F 10/27/24 08:00 Pulse 106 H 10/27/24 08:00 Resp 18 10/27/24 08:00 BP 115/59 10/27/24 08:00 Pulse Ox 92 L 10/27/24 10:35 O2 Del Method Room Air 10/27/24 10:35 O2 Flow Rate 2 10/27/24 04:00 Progress Note: Objective Labs Labs: Short CBC 10/27/24 Range/Units 05:22 WBC 27.3 H (4.0-11.0) 10^3/uL Hgb 10.2 L (12.0-16.0) g/dL Hct 31.4 L (36.0-48.0) % Plt Count 689 H (150-450) 10^3/uL BMP 10/27/24 05:22 Sodium 137 Potassium 4.0 Chloride 101 Carbon Dioxide 26.8 BUN 11.0 Creatinine 0.61 Glucose 95 Calcium 8.3 L Progress Note: A&P Assessment and Plan (1) Sepsis: (2) Uterine cancer: (3) Metastasis: (4) Moderate protein malnutrition: (5) Anemia: (6) Hypokalemia: Plan Sepsis present on admission UTI. No evidence radiologically for colo vesicle fistula however I cannot exclude the possibility entirely Started the patient IV fluid infusion Blood culture is negative. Urine culture is negative. Lactic is normal. White count is climbing up. Persistent abdominal pain. I suspected that there could be possibility of intra-abdominal infectious process such as microperforation and/or diverticulitis and/or colitis. I will change her ceftriaxone to Zosyn. Monitor white count. Metastatic malignancy. Suspect uterus is the primary Mets to lung and lymph node Ongoing slow vaginal bleed Patient was recently seen by PUNCH MACHINE HAND in the outpatient setting. Plan is to proceed with additional PUNCH MACHINE HAND oncological care in [place]. Her appointment is tomorrow. Anemia, likely caused by underlying metastatic malignancy as well as ongoing slow vaginal bleed. Iron study is consistent with a mixed etiology. Certainly there could be an element of iron deficiency Proceed with the blood transfusion given borderline hypotension. DVT prophylaxis Avoid pharmacological DVT prophy intervention due to ongoing vaginal bleed. SCD, mechanical prophylactic measures Hypokalemia and hypophosphatemia Potassium phosphate supplementation. Magnesium and phosphorus are normal. Cachexia, frailty, muscle wasting, moderate protein calorie malnutrition Likely caused by underlying malignancy I started patient on oral protein supplementation I had a long discussion about her case with her 2 daughters. Patient is not 100% ready to be discharged however she has very important appointment with PUNCH MACHINE HAND oncology in [place] tomorrow morning. Persistent abdominal pain and rising WBC. Requested repeat CAT scan of the abdomen pelvis to see if there is any perforation or finding to explain her white count elevation. I changed ceftriaxone to Zosyn. Consider the addition of antifungal. Family will likely take patient home tomorrow to see her PUNCH MACHINE HAND oncology outpatient appointment and consideration to bring her back to be admitted if she is not doing well.
[2024-10-27] MEDS: IRON SUCROSE COMPLEX 200 MG in 0.9 % SODIUM CHLORIDE 100 ML 220 MG IV (11:27)
--- NOTE | 2024-10-27 11:27 | SWNOTE1 ---
Important Message from [employer] reviewed and discussed with patient. Pt. verbalized understanding and signed the form. Original given to patient and copy placed in patient?s chart.
--- NOTE | 2024-10-27 11:27 | SWNOTE1 ---
SW met with pt to discuss dc needs. Pt lives at home with her . Pt is independent and still drives. Pt does not have any services coming in at this time. Pt denies any discharge needs. SW to follow as needed.
--- NOTE | 2024-10-27 11:54 | CM.NOTE ---
Discussed with pt about need for PCP. Pt is in agreement and would choose to see Dr. Mendez or Sonia Cardenas. Lori called and scheduled f/u appointment. Pt provided with outpatient lab requisition for CBC on , faxed to lab and copy given to pt.
[2024-10-27] MEDS: PIPERACILLIN SODIUM/TAZOBACTAM 3.375 GM in 0.9 % SODIUM CHLORIDE 50 ML IV ×2 (13:38→19:30)
--- NOTE | 2024-10-27 14:48 | DIETREC ---
Recommend 237 mL Ensure High PRO supplement TID @ mealtimes.
[2024-10-27 19:58] LABS: Lactate/Lactic Acid 1.1 mmol/L (0.4-2.0)
--- NOTE | 2024-10-27 20:18 | P.EN_ITS ---
Event Note Event Note: Due to rising WBC, negative urine and blood culture, I suspected that pt may have progressive intra abd infectious process or leukocytosis is reactive to invasive CA with pelvic inflamatory process or necrosis. Pt is on Zosyn. I requested repeat CT which showed worsening wall thickening of pelvic csytic structires. Radiologist mentioned possible necrotic lymph node, tissue or abscesses. Als + for ileus, possble early obstruction. I called and discussed her case with her dtr around 4 PM. I recommended to cance her out pt appt tomorrow with SYNTHETIC FILAMENT SPINNER oncologist Dr Gupta in [facility] and plan to consider transferring her her in pt to in pt acute [facility] or [facility] or [facility]. I called her again around 8 PM to discuss further and see if she made a decision as to what location she wants her mpm to be transferred to. Given our last week bad experience with [facility] waiting for 5 days for a bed to open up for a different pt, Dtr Kassie requested to initiate transfer to [facility]. Hoping that pt will be seen there by SYNTHETIC FILAMENT SPINNER oncology, IR, ID and possible Gen surg. I initiated a transfer to [facility]. Waiting for an accepting hospitalist to call me back.
[2024-10-27] MEDS: ZOLPIDEM TARTRATE 10 MG TABLET PO (20:43)
--- NOTE | 2024-10-27 21:09 | PM.EN ---
Event Note Event Note: Becky called me back. I spoke and discussed her case with FINISHING RANGE SUPERVISOR onc feloow Dr Mcdaniels. She said she will discuss case with her attending media relations intern onc physician and make a decision if they want to accept admitting her or find alternative option. DR Mcdaniels called me back after discussing case with her attending physician. Attending physician beleives that changes seen on CT and WBC of 27 K are likely related to progressive invasive cancer and less likely to be related to abscesses. School Lunch Monitor Onc team declined to accept the transfer from acute to acute. They beleive that her case could be handled in out pt setting. I will discuss this further with pt and her dtr tomorrow and make a decision on how to proceed.
[2024-10-28] MEDS: ACETAMINOPHEN 325 MG TABLET 650 MG PO (01:49)
[2024-10-28] MEDS: OXYCODONE HCL 5 MG TABLET PO ×2 (01:49→09:50)
[2024-10-28] MEDS: PIPERACILLIN SODIUM/TAZOBACTAM 3.375 GM in 0.9 % SODIUM CHLORIDE 50 ML IV ×3 (03:34→20:03)
[2024-10-28 03:39] VITALS: BP 117/74; PULSE 95; TEMP 36.6; O2SAT 91
[2024-10-28 05:57] LABS: Hematocrit 28.7 % (36.0-48.0); Hemoglobin 9.3 g/dL (12.0-16.0); Mean Corpuscular HGB Conc 32.4 g/dL (29.9-35.2); Mean Corpuscular Hemoglobin 24.5 pg (26.7-34.0); Mean Corpuscular Volume 75.5 fL (81.0-99.0); Platelet Count 662 10^3/uL (150-450); Red Blood Count 3.80 10^6/uL (4.20-5.40); White Blood Count 24.7 10^3/uL (4.0-11.0)
[2024-10-28] MEDS: HYDROMORPHONE HCL 0.5 MG/0.5 ML SYRINGE IV ×6 (07:48→22:12)
[2024-10-28 08:00] VITALS: BP 132/79; PULSE 109; TEMP 37.6; O2SAT 87
--- NOTE | 2024-10-28 09:00 | CM.NOTE ---
Rounds made with Dr. Cooper, plan of care discussed with family. Dr. Cooper discussed with family transfer of pt to higher level of care. Family in agreement with transfer to [facility]. CM will initiate transfer.
--- NOTE | 2024-10-28 09:46 | CM.NOTE ---
Called [facility] to initiate transfer. [facility] hospitalist will contact Dr. Cooper. Faxed face sheet to [facility].
[2024-10-28] MEDS: KETOROLAC TROMETHAMINE 30 MG/ML VIAL IVP (10:08)
[2024-10-28] MEDS: IRON SUCROSE COMPLEX 200 MG in 0.9 % SODIUM CHLORIDE 100 ML 220 MG IV (10:24)
[2024-10-28 11:02] VITALS: BP 126/74; PULSE 110; TEMP 37.2; O2SAT 90
--- NOTE | 2024-10-28 11:48 | SWNOTE1 ---
MATT received a call from Rissa at [facility]. She voiced that pt was scheduled for surgery with and she had cardiac clearance on 10/15/24. She suggested to call Dr. Campbell. Case management spoke with Dr. Campbell and the surgery was cancelled and she was sent to ED. She had fever, UTI, and increased pain. He voiced he would not do any surgery here and he was just doing a D&C and she needs more than that, he voiced to transfer her. MATT called Rissa back at [facility] transfer line and advised pt needs transferred for higher level of care. Rissa took Dr. Cooper's number and will work on transfer and call back.
--- NOTE | 2024-10-28 14:22 | CM.NOTE ---
Called [facility] transfer center for update on transfer. [facility] will attempt to have hospitalist reach out shortly to [facility].
--- NOTE | 2024-10-28 14:51 | P.DS_ITS ---
DS: Providers Provider Date of admission: 10/24/24 15:28 Primary care physician: Non-Staff Physician, Consults: 10/24/24 Consult to Dietitian Routine Reason for consultation: poor appetite DS: Diagnosis Discharge Diagnosis (1) Sepsis: (2) Uterine cancer: (3) Metastasis: (4) Moderate protein malnutrition: (5) Anemia: (6) Hypokalemia: (7) Pelvic abscess: Plan As listed above, below and others that are not listed DS: Summary Hospital Course Hospital Course: Mrs. Noland is a 74-year-old female who came in with abdominal pain. The patient was scheduled to have D&C to evaluate her uterine bleed. The patient was sent to the emergency room instead. She was found to have the following: Sepsis present on admission UTI. No evidence radiologically for colo vesicle fistula however I cannot exclude the possibility entirely Started the patient IV fluid infusion Blood culture is negative. Urine culture is negative. Lactic is normal. White count is climbing up. Persistent abdominal pain. I suspected that there could be possibility of intra-abdominal infectious process such as microperforation and/or diverticulitis and/or colitis. I will change her ceftriaxone to Zosyn. I repeated CAT scan which showed that the pelvic cystic structures seen on a prior CAT scan are exhibiting worsening wall thickening with the differential diagnosis being malignant tissue versus necrotic tissue versus abscess. No perforation seen. Probable ileus versus developing of obstruction. Patient will likely require aspiration by IR for diagnostic and therapeutic purpose and or major pelvic surgical intervention for debulking and removal of cyst/abscesses. I had a long discussion with patient and family and the decision was made to transfer her to [facility] where she is supposed to see for the first time COMMUNITY ACTION WORKER oncologist by the name of Dr. Gupta. I called [facility] yesterday around 10 PM and spoke with on-call COMMUNITY ACTION WORKER oncology fellow Dr. Mcdaniels. She had discussed her case with her attending physician and called me back to inform me that patient had been declined to be admitted to [facility] stating that abnormality seen on CT and high white count are likely secondary to tumor and increased tumor burden. They recommended the patient to be discharged home and follow-up in the outpatient setting. I had further discussion with her family this morning. Family is requesting to transfer her to [facility]. We contacted [facility] around 8 AM. We requested an official transfer to [facility]. I am still waiting on [facility] to call me back to discuss his case with attending hospitalist ( 3 Pm ) If [facility] does not have a bed or does not call me within a reasonable time I would initiate another official requested to transfer her to [facility]. Meanwhile continue antibiotic. I made her n.p.o. I started her on LR at 80 an hour The good thing is that her white count is lower today than yesterday. Her lactic is normal as well yesterday I repeated blood culture which is still pending. Metastatic malignancy. Suspect uterus is the primary Mets to lung and lymph node Ongoing slow vaginal bleed Patient was recently seen by COMMUNITY ACTION WORKER in the outpatient setting. Plan is to proceed with additional COMMUNITY ACTION WORKER oncological care in [place]. Anemia, likely caused by underlying metastatic malignancy as well as ongoing slow vaginal bleed. Iron study is consistent with a mixed etiology. Certainly there could be an element of iron deficiency Proceed with the blood transfusion given borderline hypotension. Hemoglobin is stable post transfusion. DVT prophylaxis Avoid pharmacological DVT prophy intervention due to ongoing vaginal bleed and hemoglobin drop.. SCD, mechanical prophylactic measures Hypokalemia and hypophosphatemia Potassium phosphate supplementation. Magnesium and phosphorus are normal. Cachexia, frailty, muscle wasting, moderate protein calorie malnutrition Likely caused by underlying malignancy I started patient on oral protein supplementation Time Spent with Patient Time attestation: Total time spent providing and/or coordinating discharge services: Exam Constitutional Vital Signs, click to edit/add: Last Vital Signs Temp 99 F 10/28/24 11:02 Pulse 110 H 10/28/24 11:02 Resp 16 10/28/24 11:02 BP 126/74 10/28/24 11:02 Pulse Ox 90 L 10/28/24 11:02 O2 Del Method Nasal Cannula 10/28/24 11:02 O2 Flow Rate 2 10/28/24 11:02 DS: Data Data Completed and Pending Labs on day of discharge: Labs from last 24 hours 10/28/24 10/27/24 05:46 19:11 WBC 24.7 H RBC 3.80 L Hgb 9.3 L Hct 28.7 L MCV 75.5 L MCH 24.5 L MCHC 32.4 RDW 18.0 H Plt Count 662 H MPV 9.5 Lactate 1.1 Preliminary micro results at discharge 10/24/24 11:39 Blood Culture Result 1 - Preliminary Blood - Left Antecubital NO GROWTH AT 36-48 HOURS. FINAL TO FOLLOW. 10/24/24 11:46 Blood Culture Result 2 - Preliminary Blood - Right Antecubital NO GROWTH AT 36-48 HOURS. FINAL TO FOLLOW. Discharge Plan Discharge Disposition: [facility] Condition: Fair
[2024-10-28 15:08] VITALS: BP 118/71; PULSE 96; TEMP 36.6; O2SAT 92
--- NOTE | 2024-10-28 16:17 | CM.NOTE ---
Call placed to [facility] at [phone] requesting transfer to their facility. A facesheet was faxed to [phone] on 10/28/2024. 's phone number was provided to [facility].
--- NOTE | 2024-10-28 16:20 | PM.EN ---
Event Note Event Note: After waiting for [facility] all day long, they just called us to let us know that no WIND FIELD SERVICE MANAGER oncology available and they declined to take the patient. Even though we had informed them at 8:00 that the patient will need WIND FIELD SERVICE MANAGER oncology team. Now we will try to call [facility] back and put pressure on them to accept inpatient to inpatient transfer. At the same time I will call [facility] and initiate transfer to [facility]. Patient will be transferred to the institution that would be able to take her first.
--- NOTE | 2024-10-28 16:50 | PM.EN ---
Event Note Event Note: CC called me back. I discussed her case with her RESIDENCE SUPERVISOR physician Dr. Juan. I gave him clinical information regarding her situation as well as labs, imaging and others. I answered all of his questions. He accepted her to be transferred to [facility] when a bed opens up.
[2024-10-28 19:53] VITALS: BP 118/69; PULSE 94; TEMP 36.4; O2SAT 91
[2024-10-28 20:49] VITALS: O2SAT 91
--- NOTE | 2024-10-28 21:55 | PM.EN ---
Event Note Event Note: [facility] called me back around 7 PM. I again discussed her case with SEWING MACHINE OPERATOR SEMIAUTOMATIC Dr Hartmann and begged her to accpet pt there for SEWING MACHINE OPERATOR SEMIAUTOMATIC and IR evaluation. She finally agrred to admit. Pt will be transferred there when a bed opens up. Now pt was accpted by [facility] and [facility]. Family wants her to be transferred to either location as soon as bed opens up.
[2024-10-28] MEDS: ZOLPIDEM TARTRATE 10 MG TABLET PO (22:17)
[2024-10-29 00:02] VITALS: BP 124/73; PULSE 110; TEMP 36.9; O2SAT 91
[2024-10-29] MEDS: HYDROMORPHONE HCL 0.5 MG/0.5 ML SYRINGE IV ×2 (01:06→03:05)
[2024-10-29] MEDS: KETOROLAC TROMETHAMINE 30 MG/ML VIAL 15 MG IVP (03:05)
== END 2024-10-29 03:05 | disposition short-term general hospital (02) | DRG 854 ==
LOC: ER 12:54 → MS 15:31
PROVIDERS: Admitting Provider Internal Medicine; Emergency Provider Emergency Medicine; Visit Provider Internal Medicine
DX: A41.9 Sepsis, unspecified organism (principal); C77.9 Secondary and unspecified malignant neoplasm of lymph node, unspecified; N39.0 Urinary tract infection, site not specified; C78.00 Secondary malignant neoplasm of unspecified lung; E44.0 Moderate protein-calorie malnutrition; R64 Cachexia; C55 Malignant neoplasm of uterus, part unspecified; E87.6 Hypokalemia; R54 Age-related physical debility; N93.9 Abnormal uterine and vaginal bleeding, unspecified; E83.39 Other disorders of phosphorus metabolism; M62.50 Muscle wasting and atrophy, not elsewhere classified, unspecified site; N73.9 Female pelvic inflammatory disease, unspecified; D63.0 Anemia in neoplastic disease; D50.0 Iron deficiency anemia secondary to blood loss (chronic); Z68.24 Body mass index [BMI] 24.0-24.9, adult; D72.829 Elevated white blood cell count, unspecified; N92.0 Excessive and frequent menstruation with regular cycle; Z53.8 Procedure and treatment not carried out for other reasons; N94.89 Other specified conditions associated with female genital organs and menstrual cycle; N85.8 Other specified noninflammatory disorders of uterus
CPT/HCPCS: 36415; 36430; 51702; 51798; 71045; 74177; 80048; 80053; 80076; 81001; 82150; 82607; 82728; 82746; 83540; 83550; 83605; 83690; 83735; 84100; 84484; 85007; 85014; 85018; 85025; 85027; 86304; 86850; 86900; 86901; 86923; 87040; 87086; 93005; 94761; 96365; 96375; 96376; 99285; J0696; J1171; J1756; J1885; J2270; J2405; J2543; J3475; J3480; J3490; P9016; Q9967

== ENCOUNTER 2024-12-24 08:54 | Outpatient (RCR) | payer MEDICARE, OTHER, SELFPAY ==
[2024-12-23 14:16] LABS: Hematocrit 24.0 % (36.0-48.0); Hemoglobin 7.1 g/dL (12.0-16.0)
[2024-12-24] VITALS (9 sets, daily range): BP systolic 110–136; BP diastolic 63–83; PULSE 86–115; TEMP 36.4–37.1; O2SAT 92–96
[2024-12-24] MEDS: 0.9 % SODIUM CHLORIDE 250 ML 40 ML IV (09:00)
[2024-12-24] MEDS: ACETAMINOPHEN 325 MG TABLET 650 MG PO (09:09)
[2024-12-24] MEDS: DIPHENHYDRAMINE HCL 25 MG CAPSULE PO (09:09)
--- NOTE | 2024-12-24 10:23 | PC.NURSE ---
Tolerating PRB's without any sx of reaction. reclined in recliner, with eyes closed.(Patient did eat a muffin and coffee since transfusion started)
[2024-12-24] MEDS: BUMETANIDE 1 MG/4 ML VIAL IVP (10:41)
--- NOTE | 2024-12-24 10:54 | PC.NURSE ---
1045 iv bumex as ordered. 2nd unit of prbc's initiated. lungs remain clear. offers no complaints
--- NOTE | 2024-12-24 11:13 | PC.NURSE ---
1100up to bathroom to void, voids qs, states she feels much better after getting the first unit.
--- NOTE | 2024-12-24 12:01 | PC.NURSE ---
ate another muffin with butter and cup of coffee, up to bathroom to void qs. Daughters at chairside at this time
--- NOTE | 2024-12-24 12:22 | PC.NURSE ---
2nd unitof prbc's infused. tolerated well. no s/s of reaction. Respirations with ease, lungs clear throughout
[2024-12-24] MEDS: HEPARIN SODIUM (PORCINE) PF LOCK FLUSH 500 UNIT/5 ML SYRINGE IV (12:30)
--- NOTE | 2024-12-24 12:42 | PC.NURSE ---
1230 Ns flush completed. port flushed with ns and heparin lock flush. port deaccessed, cottonball applied with minimal bleeding, pressure held until no further bleeding. bandaid applied. Patient released ambulatory with daughters and
== END 2025-01-05 08:24 | disposition home or self-care (01) ==
LOC: LAB 08:54
PROVIDERS: Visit Provider Physician Assistant Medical
DX: D64.9 Anemia, unspecified (principal); Z51.81 Encounter for therapeutic drug level monitoring; Z85.89 Personal history of malignant neoplasm of other organs and systems
CPT/HCPCS: 36415; 36430; 85014; 85018; 86850; 86900; 86901; 86923; J1642; P9016

== ENCOUNTER 2025-01-30 07:45 | Outpatient (RCR) | payer MEDICARE, OTHER, SELFPAY ==
[2025-01-30 09:25] VITALS: BP 96/58; PULSE 116; TEMP 36.4; O2SAT 93
[2025-01-30] MEDS: 0.9 % SODIUM CHLORIDE 1,000 ML 1000 ML IV (09:37)
[2025-01-30] MEDS: DIPHENHYDRAMINE HCL 25 MG CAPSULE PO (09:39)
[2025-01-30] MEDS: ACETAMINOPHEN 325 MG TABLET 650 MG PO (09:39)
[2025-01-30 09:56] LABS: Hematocrit 25.0 % (36.0-48.0); Hemoglobin 7.9 g/dL (12.0-16.0)
--- NOTE | 2025-01-30 11:06 | PC.NURSE ---
1100 Takes short nap, awake, eating pretzel, daughters with patient.
--- NOTE | 2025-01-30 11:26 | PC.NURSE ---
Tolerated infusion of NS 1000 ml. Tolerated well, vs obtained.Lungs remain clear.
[2025-01-30 11:32] VITALS: BP 114/70; PULSE 98; TEMP 36.6; O2SAT 91
[2025-01-30 11:49] VITALS: BP 113/68; PULSE 96; TEMP 37.1; O2SAT 92
--- NOTE | 2025-01-30 11:55 | PC.NURSE ---
tolerating prbc's without any issues, rate increased to 240 ml hr. daughter at chairside
[2025-01-30 12:49] VITALS: BP 108/65; PULSE 94; TEMP 36.6; O2SAT 94
[2025-01-30] MEDS: HEPARIN SODIUM (PORCINE) PF LOCK FLUSH 500 UNIT/5 ML SYRINGE IV (13:15)
== END 2025-02-04 23:59 | disposition home or self-care (01) ==
LOC: INF 07:45
DX: D64.9 Anemia, unspecified (principal)
CPT/HCPCS: 36415; 36430; 36591; 85014; 85018; 86850; 86900; 86901; 86923; J1642; P9016